=== PATIENT | male | born 1985 | race Caucasian/White ===

== ENCOUNTER → 2020-07-06 15:03 | Outpatient (BNVA) | payer MEDICAID, SELFPAY | PROVIDERS: Family Provider Nurse Practitioner Family; PCP Nurse Practitioner Family; Visit Provider Nurse Practitioner Family | DX: N31.9 Neuromuscular dysfunction of bladder, unspecified (principal); B37.9 Candidiasis, unspecified; N41.9 Inflammatory disease of prostate, unspecified | CPT/HCPCS: 80053; 81001 ==

== ENCOUNTER → 2020-07-27 08:41 | Outpatient (BNVA) | payer MEDICAID, SELFPAY | PROVIDERS: Family Provider Nurse Practitioner Family; PCP Nurse Practitioner Family; Visit Provider Nurse Practitioner Family | DX: N39.0 Urinary tract infection, site not specified (principal); N41.9 Inflammatory disease of prostate, unspecified; N31.9 Neuromuscular dysfunction of bladder, unspecified; B37.9 Candidiasis, unspecified | CPT/HCPCS: 81003 ==

== ENCOUNTER 2020-09-18 07:18 | Outpatient (CLI) | payer MEDICAID, SELFPAY ==
--- NOTE | 2020-09-18 07:15 | XR_ITS ---
WS: [id number] ABDOMEN: SUPINE FILM HISTORY: NEUROGENIC BLADDER COMPARISON: 03/26/2017 Marked diffuse fecal constipation and retention. PATIENT FINANCIAL REP shunt catheter is present with type coiling of th e distal catheter projecting over the L4 vertebral body, similar to the prior study. Right kidney: No renal or ureteral stone identified. Left kidney: No renal or ureteral stone identified. XR/XR KUB [id number] IMPRESSION: No renal, ureteral or pelvic calcifications identified.
[2020-09-18 08:16] LABS: Anion Gap 10.3 (5-19); Blood Urea Nitrogen 14 mg/dL (6-20); Calcium 9.2 mg/dL (8.5-10.5); Carbon Dioxide 29 mmol/L (22-29); Chloride 104 mmol/L (98-107); Glomerular Filtration Rate 68.9 mL/min (90-130); Glucose 99 mg/dL (65-115); Osmolality Calculated 289 mOsm/kg (285-295); Potassium 4.3 mmol/L (3.5-5.1); Sodium 139 mmol/L (136-145)
== END 2020-09-18 07:19 | disposition home or self-care (01) ==
LOC: RAD 07:21
PROVIDERS: PCP Nurse Practitioner Family; Visit Provider Urology
DX: N31.9 Neuromuscular dysfunction of bladder, unspecified (principal)
CPT/HCPCS: 36415; 74018; 80048; 81003

== ENCOUNTER 2020-12-21 15:56 | Outpatient (CLI) | payer MEDICAID, SELFPAY ==
--- NOTE | 2020-12-21 16:20 | CT_ITS ---
WS: [id number] CT CHEST TECHNIQUE: Noncontrast CT of the chest with coronal and sagittal reformatted images. CLINICAL INFORMATION: RIGHT SIDED CHEST WALL PAIN COMPARISON: None. DLP: 637.[address] scans at [facility] use at least one of these dose optimization techniques: automat ed exposure control; mA and/or kV adjustment per patient size (includes targeted exams where dose is matched to clinical indication); or iterative reconstruction. FINDINGS: Both lungs are well aerated. No acute pulmonary infiltrates. No focal pneumonia or pleural fluid. No pneumothorax. No mediastinal or hilar lymphadenopathy. No axillary lymphadenopathy. Adrenal glands are normal. Normal visualized thoracic spine. Shunt catheter visualized in the right c hest wall appears unremarkable. CT/CT chest wo con [id number] IMPRESSION: 1. Normal chest CT. 2. No acute pulmonary infiltrates. No focal pneumonia or pleural fluid. 3. No pneumothorax. 4. Partially visualized shunt tubing in the right chest wall appears unremarka ble
== END 2020-12-21 15:57 | disposition home or self-care (01) ==
LOC: RADWPI 16:00
PROVIDERS: PCP Nurse Practitioner Family; Visit Provider Nurse Practitioner Family
DX: R07.89 Other chest pain (principal)
CPT/HCPCS: 71250

== ENCOUNTER → 2020-12-27 15:12 | Outpatient (BNVA) | payer MEDICAID, SELFPAY | PROVIDERS: PCP Nurse Practitioner Family; Visit Provider Nurse Practitioner Family | DX: N31.9 Neuromuscular dysfunction of bladder, unspecified (principal); N41.9 Inflammatory disease of prostate, unspecified; N35.913 Unspecified membranous urethral stricture, male | CPT/HCPCS: 81003 ==

== ENCOUNTER 2021-04-07 09:46 | Emergency (ER) | payer MEDICAID, SELFPAY ==
[2021-04-07 09:51] VITALS: BP 116/77; PULSE 80; RESP 15; TEMP 36.6; O2SAT 98; BMI 23.3
--- NOTE | 2021-04-07 10:03 | ED_ITS ---
HPI - Male Genitourinary General: Chief complaint: Urogenital-Male Stated complaint: POSS UTI Time Seen by Provider: 04/07/21 09:47 History of Present Illness: HPI Narrative: 35-year-old male with a history of spina bifida previous surgery for spina bifida left him with a neurogenic bladder and he has to self cath on a regular basis. Comes in today complaining of symptoms of UTI has had multiple in the past. He is not on any chronic suppressive therapy although on his medicine list he has Cipro 500 twice daily with a course of 60 tablets on there he states he has not been taking them. He denies any fever he is at flank pain bilaterally as well. No hematuria. All of his symptoms began yesterday. MD Complaint: dysuria Onset (ago): hour(s) Duration: constant and progressively worsening Location: right flank and left flank Severity: moderate Quality: aching Relieving factors: none Associated symptoms: Reports dysuria and urinary retention; Deny discharge, fevers/chills, hematuria, nausea, rash, swelling, urinary incontinence, mass or vomiting Review of Systems Const: Denies: fever(s), chills, body aches, change in appetite, fatigue or malaise ENMT: Denies: throat pain, ear or mastoid pain, nasal discharge or nasal congestion Card: Denies: chest pain, edema, dyspnea on exertion or orthopnea Resp: Denies: dyspnea, productive cough or non-productive cough GI: Denies: nausea or vomiting : Reports: dysuria; Denies: urinary incontinence or hematuria Skin/Breast: Denies: rash or pruritus PFSH ED PFSH: Medical History History of right foot drop CORRECTIVE SURGERY Hx of spina bifida SURGERY Membranous urethral stricture Neurogenic bladder Prostatitis Surgical History History of brain shunt History of pituitary surgery Hx of circumcision Family History Father Diabetes Mother Diabetes Social History Smoking and tobacco status: former smoker Alcohol intake: never Caregiver/support person: No Lives independently: Yes Marital status: Current occupational status: disabled Physical Exam Const: COMMON NORMALS: no acute distress GENERAL APPEARANCE: cooperative and comfortable ORIENTATION/CONSCIOUSNESS: Yes awake, Yes oriented to person, Yes oriented to place and Yes oriented to time HENMT: COMMON NORMALS: normocephalic, atraumatic, hearing grossly normal bilaterally and external ears normal HEAD & SCALP: normocephalic and atraumatic EXTERNAL EAR: Yes external ears normal Neck/C-Spine: COMMON NORMALS: no JVD Resp: COMMON NORMALS: normal respiratory effort, No retractions, No use of accessory muscles and clear to auscultation bilaterally AUSCULTATION: clear to auscultation bilaterally Cardio: COMMON NORMALS: no JVD, regular rate, regular rhythm and No murmurs present (Cardio) RATE: regular rate RHYTHM: regular rhythm GI: COMMON NORMALS: Soft to palpation and No hepatosplenomegaly present AUSCULTATION: Yes normoactive bowel sounds PALPATION: Yes Soft to palpation, No Tenderness to palpation present (GI), No Guarding due to palpation present (GI) and Yes No hepatosplenomegaly present Extremity: COMMON NORMALS: normal to inspection, capillary refill normal, no clubbing, cyanosis or edema, no calf tenderness and no pedal edema Neuro: SENSORIUM/ORIENTATION: Yes oriented to person, Yes oriented to place and Yes oriented to time Skin: COMMON NORMALS: no rashes or lesions noted GENERAL SKIN EXAM: no rashes or lesions noted Course Vital Signs: Vital signs: Vital Signs Temperature 97.9 F 04/07/21 09:51 Pulse Rate 93 04/07/21 11:04 Respiratory Rate 15 04/07/21 11:04 Blood Pressure 116/77 04/07/21 09:51 Pulse Oximetry 98 04/07/21 11:04 MDM - Male MDM Narrative: Medical decision making narrative: Cystitis. White count is normal. We will start him on Rocephin single dose here and will start on oral antibiotics. Lab Data: Labs: Lab Results 04/07/21 04/07/21 04/07/21 Range/Units 10:15 10:15 10:15 WBC 7.9 (4.0-10.0) 10^3/ uL RBC 5.18 (4.1-5.3) 10^6/u L Hgb 15.2 (11.7-16.6) g/dL Hct 46.1 (42.0-52.0) % MCV 89.0 (80-94) fL MCH 29.3 (28.0-34.0) pg MCHC 33.0 (30.0-36.0) g/dL RDW 12.1 (12.1-15.1) % Plt Count 247 (130-400) 10^3/c mm MPV 10.0 (7.4-10.4) fL Neut % (Auto) 74.1 % Lymph % (Auto) 17.8 % [place] % (Auto) 5.9 % Eos % (Auto) 1.3 % Baso % (Auto) 0.6 % Neut # (Auto) 5.85 (1.8-7.7) 10^3/u L Lymph # (Auto) 1.4 (0.8-4.8) 10^3/u L [place] # (Auto) 0.5 (0.2-0.9) 10^3/u L Eos # (Auto) 0.1 (0.0-0.8) 10^3/u L Baso # (Auto) 0.1 (0.0-0.1) 10^3/u L Nucleated RBC % (a uto) 0 % Nucleated RBCs # 0.0 /100WBC Sodium 138 (136-145) mmol/L Potassium 4.9 (3.5-5.1) mmol/L Chloride 101 (98-107) mmol/L Carbon Dioxide 28 (22-29) mmol/L Anion Gap 13.9 (5-19) BUN 9 (6-20) mg/dL Creatinine 0.9 (0.7-1.2) mg/dL GFR Calculation 96.0 (90-130) mL/min Glucose 141 H (65-115) mg/dL Calculated Osmolal ity 287 (285-295) mOsm/k g Calcium 9.1 (8.5-10.5) mg/dL Urine Color Yellow (Yellow) Urine Appearance Cloudy (CLEAR) Urine pH 7 (5-7) Ur Specific Gravit y 1.015 (1.005-1.030) Urine Protein Neg (Negative) Urine Glucose (UA) Norm (Normal) Urine Ketones Negative (Negative) Urine Blood Neg (Negative) Urine Nitrate Positive H (Negative) Urine Bilirubin Neg (Negative) Urine Urobilinogen Norm (Negative) mg/dL Ur Leukocyte Tamika ase Trace H (Negative) Urine RBC None (0-2) /hpf Urine WBC 15-25 H (0-5) /hpf Ur Squamous Epith Cells 0-4 H (0-5) /hpf Amorphous Sediment Not Reportable Urine Bacteria 3+ H (NONE) /hpf Discharge Plan Discharge Patient Disposition: Home Clinical Impression: Urinary tract infection, Neurogenic bladder Condition: Stable Prescriptions: New ciprofloxacin HCl 500 mg tablet 500 mg PO BID Qty: 20 RF: 0 No Action desmopressin 10 mcg/spray (0.1 mL) spray with pump See Rx Instructions .ROUTE .COMPLEX RF: 0 atorvastatin 40 mg tablet 40 mg PO BEDTIME RF: 0 naproxen sodium 220 mg Tablet 220 mg PO BID RF: 0 lamotrigine 50 mg tablet extended release 24hr 50 mg PO BEDTIME RF: 0 Discharge Orders: Discharge ED (Routine); Ordered 04/07/21 Ordered By: Adan Sandhu Referrals: Sisi Russo NP [Primary Care Provider] - Discharge Diet: Usual diet Patient Instructions: Opioid Safety Coding Level of Care Code ED Shop Worker for Chg Fwd Exam Comprehensive
[2021-04-07 10:25] LABS: Basophils # 0.1 10^3/uL (0.0-0.1); Basophils % 0.6 %; Eosinophils # 0.1 10^3/uL (0.0-0.8); Eosinophils % 1.3 %; Hematocrit 46.1 % (42.0-52.0); Hemoglobin 15.2 g/dL (11.7-16.6); Lymphocytes # 1.4 10^3/uL (0.8-4.8); Lymphocytes % 17.8 %; Mean Corpuscular Hemoglobin 29.3 pg (28.0-34.0); Monocytes # 0.5 10^3/uL (0.2-0.9); Monocytes % 5.9 %; Neutrophils # 5.85 10^3/uL (1.8-7.7); Neutrophils % 74.1 %; Nucleated Red Blood Cells % 0 %; Platelet Count 247 10^3/cmm (130-400); Red Blood Count 5.18 10^6/uL (4.1-5.3); Red Cell Distribution Width 12.1 % (12.1-15.1); White Blood Count 7.9 10^3/uL (4.0-10.0)
--- NOTE | 2021-04-07 10:45 | PC.PHAR ---
pt states he takes care of his own medications-pt brought in med bottle from 09/18/2020 for cipro 500mg bid and bactrim ds 1 tab bid dated 12/14/2019 pt states he hasnt taken for a long time but wanted the dr to know thats the medications he usually gets when he gets the infections
[2021-04-07 10:46] LABS: Add Urine Culture? Yes; Add Urine Microscopic? YES; Bacteria Urine 3+ /hpf; Bilirubin Urine Neg (Negative); Blood Urine Neg (Negative); Glucose Urine UA Norm (Normal); Ketones Urine Negative (Negative); Leukocyte Esterase Urine Trace (Negative); Nitrate Urine Positive (Negative); Protein Urine Neg (Negative); Specific Gravity, Urine 1.015 (1.005-1.030); Squamous Epithelial Cell Urine 0-4 /hpf (0-5); Urine Appearance Cloudy (CLEAR); Urine Color Yellow (Yellow); Urobilinogen Urine Norm (Negative); WBC Urine 15-25 /hpf (0-5); pH Urine 7 (5-7)
[2021-04-07 10:49] LABS: Blood Urea Nitrogen 9 mg/dL (6-20); Calcium 9.1 mg/dL (8.5-10.5); Carbon Dioxide 28 mmol/L (22-29); Chloride 101 mmol/L (98-107); Glucose 141 mg/dL (65-115); Osmolality Calculated 287 mOsm/kg (285-295); Sodium 138 mmol/L (136-145)
[2021-04-07 10:50] LABS: Anion Gap 13.9 (5-19); Potassium 4.9 mmol/L (3.5-5.1)
[2021-04-07] MEDS: cefTRIAXone 1,000 MG in lidocaine 1% 2.1 ML 2.1 MG IM (11:01)
[2021-04-07 11:04] VITALS: PULSE 93; RESP 15; O2SAT 98
== END 2021-04-07 11:08 | disposition home or self-care (01) ==
PROVIDERS: Physician Assistant; Emergency Provider Family Medicine; PCP Nurse Practitioner Family
DX: N39.0 Urinary tract infection, site not specified (principal); N31.9 Neuromuscular dysfunction of bladder, unspecified; Z87.891 Personal history of nicotine dependence
CPT/HCPCS: 36415; 80048; 81001; 85025; 87040; 87077; 87086; 87186; 96372; 99283; J0696

== ENCOUNTER 2021-09-23 10:42 | Emergency (ER) | payer MEDICAID, SELFPAY ==
[2021-09-23 11:21] VITALS: BP 122/76; PULSE 82; RESP 12; TEMP 36.9; O2SAT 100; BMI 24.0
--- NOTE | 2021-09-23 11:27 | ED_ITS ---
HPI - Male Genitourinary General: Chief complaint: Urogenital-Male Stated complaint: possible kidney infection Time Seen by Provider: 09/23/21 11:27 History of Present Illness: HPI Narrative: prostate pain/odor with urine output/chronic cath Onset (ago): day(s) (2-3 days increasing) Review of Systems General: Reports: 10 or more systems reviewed and unremarkable except in HPI and below : Reports: other (purulence, fullness, and odor with self caths) PFSH ED PFSH: Medical History History of right foot drop CORRECTIVE SURGERY Hx of spina bifida SURGERY Membranous urethral stricture Neurogenic bladder Prostatitis Surgical History History of brain shunt History of pituitary surgery Hx of circumcision Family History Father Diabetes Mother Diabetes Social History Smoking and tobacco status: former smoker Alcohol intake: never Caregiver/support person: No Lives independently: Yes Marital status: Current occupational status: disabled Physical Exam Const: COMMON NORMALS: no acute distress, patient oriented x3, no limitations and alert GENERAL APPEARANCE: cooperative and comfortable ORIENTATION/CONSCIOUSNESS: Yes awake, Yes oriented to person, Yes oriented to place and Yes oriented to time HENMT: COMMON NORMALS: normocephalic, atraumatic, external ears normal, EAC's normal, TM's normal bilaterally and Normal external nose present HEAD & SCALP: normal to inspection, normocephalic and atraumatic FACE & SINUS: normal facial exam, sinuses nontender and face symmetric NOSE: Normal external nose present, Normal nares present and No nasal discharge present EXTERNAL EAR: Yes external ears normal EXTERNAL AUDITORY CANAL: EAC's normal TYMPANIC MEMBRANE: TM's normal bilaterally MOUTH: Normal oral and palatal mucosa present, lip normal and tongue normal THROAT: posterior oropharynx normal, tonsils normal and uvula midline Eye: COMMON NORMALS: Equal, round and reactive pupils present, EOMs intact bilaterally and conjunctivae normal GENERAL EYE: appearance normal, both eyes and all related structures and normal light reflex EYELID: eyelids normal CONJUNCTIVA: Yes conjunctivae normal PUPIL: Yes Equal, round and reactive pupils present EOM: Yes EOM abnormal DIRECT OPHTHALMOSCOPY: Yes normal light reflex Neck/C-Spine: COMMON NORMALS: full ROM, no lymphadenopathy, supple, no meningeal signs, no JVD and Thyroid normal GENERAL: Yes normal visual inspection THYROID: Thyroid normal CERVICAL SPINE: Yes cervical ROM normal and Yes normal cervical lordosis Lymph: LYMPHATIC: no lymphadenopathy noted Chest: COMMONS NORMALS: normal inspection of the chest and normal palpation of entire chest wall Resp: COMMON NORMALS: normal respiratory effort, No retractions and clear to auscultation bilaterally AUSCULTATION: clear to auscultation bilaterally Cardio: COMMON NORMALS: no JVD, regular rate, regular rhythm, S1 normal heart sound present, S2 normal heart sound present, No gallops present (Cardio), No clicks present (Cardio), No murmurs present (Cardio), No rub (Cardio) and Peripheral pulses 2+ throughout RATE: regular rate RHYTHM: regular rhythm HEART SOUNDS: S1 normal heart sound present and S2 normal heart sound present PERIPHERAL PULSES: Peripheral pulses 2+ throughout GI: COMMON NORMALS: Normal to inspection, nondistended, normoactive bowel sounds present, Soft to palpation, non-tender and no masses PALPATION: Yes Soft to palpation : COMMON NORMALS: Yes no CVA tenderness BLADDER/KIDNEY EXAM: Yes no CVA tenderness Back/Pelvis: COMMON NORMALS: no CVA tenderness, thoracic and lumbar spine normal to inspection, no thoracic nor lumbar tenderness and thoraco-lumbar ROM normal Extremity: COMMON NORMALS: normal to inspection, full ROM, capillary refill normal, no joint enlargement, no clubbing, cyanosis or edema, no calf tenderness and no pedal edema GENERAL: Yes normal exam except as noted Neuro: COMMON NORMALS: patient oriented x3, moves all extremities, no focal motor deficits, no sensory deficits noted and gait normal SENSORIUM/ORIENTATION: Yes alert, Yes oriented to person, Yes oriented to place and Yes oriented to time MENINGEAL SIGNS: Yes no meningeal signs Psych: COMMON NORMALS: mental status grossly normal, Normal thought process present, cooperative, normal affect, speech normal and activity/motor behavior normal SPEECH: Yes normal speech THOUGHT PROCESS: Normal thought process present Skin: COMMON NORMALS: no rashes or lesions noted, no wounds and turgor normal GENERAL SKIN EXAM: no rashes or lesions noted and turgor normal Course ED course: Pt presents with complaints of flare up of similar prostatitis flare ups. He has been on oral cipro for 6 weeks and monitored per urology clinic. This feels similar to him and he notes odor, purulence, and discomfort when passing prostate during his self caths. We will do a UA but tx will be cipro orally and pt to follow up with urology this week as soon as possible. Reevaluation(s): Reevaluation #1: Pt UA appears to have too many WBCs to count but is negative for nitrates. Further increasing the chances of prostatitis for his primary dx. WBC is wnl so no acute infection of his systemic response to infection being triggered. We will proceed with DC for tx of prostatitis and FOLLOW UP with Urology Time: 12:37 Vital Signs: Vital signs: Vital Signs Temperature 98.5 F 09/23/21 11:21 Pulse Rate 84 09/23/21 11:47 Respiratory Rate 16 09/23/21 11:47 Blood Pressure 131/81 09/23/21 11:47 Pulse Oximetry 100 09/23/21 11:47 MDM - Male Lab Data: Labs: Lab Results 09/23/21 09/23/21 11:45 12:12 WBC 7.6 10^3/uL 10^3/ uL (4.0-10.0) RBC 5.13 10^6/uL 10^6 /uL (4.1-5.3) Hgb 15.2 g/dL g/dL (11.7-16.6) Hct 45.6 % % (42.0-52.0) MCV 88.9 fl fl (80-94) MCH 29.6 pg pg (28.0-34.0) MCHC 33.3 g/dL g/dL (30.0-36.0) RDW 12.6 % % (12.1-15.1) Plt Count 258 10^3/cmm 10^3 /cmm (130-400) MPV 9.7 fL fL (7.4-10.4) Neut % (Auto) 74.2 % % Lymph % (Auto) 16.7 % % [place] % (Auto) 6.8 % % Eos % (Auto) 1.4 % % Baso % (Auto) 0.5 % % Neut # (Auto) 5.64 10^3/uL 10^3 /uL (1.8-7.7) Lymph # (Auto) 1.3 10^3/uL 10^3/ uL (0.8-4.8) [place] # (Auto) 0.5 10^3/uL 10^3/ uL (0.2-0.9) Eos # (Auto) 0.1 10^3/uL 10^3/ uL (0.0-0.8) Baso # (Auto) 0.0 10^3/uL 10^3/ uL (0.0-0.1) Nucleated RBC % (a uto) 0 % % Nucleated RBCs # 0.0 /100WBC /100W BC Urine Color Yellow (Yellow) Urine Appearance Hazy A (CLEAR) Urine pH 5 (5-7) Ur Specific Gravit y 1.020 (1.005-1.030) Urine Protein Neg (Negative) Urine Glucose (UA) Norm (Normal) Urine Ketones Negative (Negative) Urine Blood 2+ H (Negative) Urine Nitrate Negative (Negative) Urine Bilirubin Neg (Negative) Urine Urobilinogen Norm mg/dL mg/dL (Negative) Ur Leukocyte Tamika ase 2+ H (Negative) Urine RBC 10-15 /hpf H /hpf (0-2) Urine WBC Too numerous to c nt /hpf H /hpf (0-5) Ur Squamous Epith Cells None /hpf /hpf (0-5) Amorphous Sediment Not Reportable Urine Bacteria 3+ /hpf H /hpf (NONE) Discharge Plan Discharge Condition: Stable Prescriptions: New Cipro 500 mg tablet 500 mg PO BID Qty: 20 RF: 0 No Action desmopressin 10 mcg/spray (0.1 mL) spray with pump See Rx Instructions .ROUTE .COMPLEX RF: 0 atorvastatin 40 mg tablet 40 mg PO BEDTIME RF: 0 naproxen sodium 220 mg Tablet 220 mg PO BID RF: 0 Coding Level of Care Code ED [employer] Plant Operator for Chg Fwd Exam Comprehensive
[2021-09-23 11:47] VITALS: BP 131/81; PULSE 84; RESP 16; O2SAT 100
[2021-09-23] MEDS: ciprofloxacin 500 mg Tablet PO (12:05)
[2021-09-23] MEDS: phenazopyridine 100 mg Tablet 200 MG PO (12:05)
[2021-09-23 12:22] LABS: Basophils % 0.5 %; Eosinophils # 0.1 10^3/uL (0.0-0.8); Eosinophils % 1.4 %; Hematocrit 45.6 % (42.0-52.0); Hemoglobin 15.2 g/dL (11.7-16.6); Lymphocytes # 1.3 10^3/uL (0.8-4.8); Lymphocytes % 16.7 %; Mean Corpuscular HGB Conc 33.3 g/dL (30.0-36.0); Mean Corpuscular Hemoglobin 29.6 pg (28.0-34.0); Mean Corpuscular Volume 88.9 fl (80-94); Mean Platelet Volume 9.7 fL (7.4-10.4); Monocytes # 0.5 10^3/uL (0.2-0.9); Monocytes % 6.8 %; Neutrophils # 5.64 10^3/uL (1.8-7.7); Neutrophils % 74.2 %; Nucleated Red Blood Cells % 0 %; Platelet Count 258 10^3/cmm (130-400); Red Blood Count 5.13 10^6/uL (4.1-5.3); Red Cell Distribution Width 12.6 % (12.1-15.1); White Blood Count 7.6 10^3/uL (4.0-10.0)
[2021-09-23 12:25] LABS: Urine Appearance Hazy (CLEAR); Urine Color Yellow (Yellow); pH Urine 5 (5-7)
[2021-09-23 12:26] LABS: Add Urine Culture? Yes; Add Urine Microscopic? YES; Bacteria Urine 3+ /hpf; Bilirubin Urine Neg (Negative); Blood Urine 2+ (Negative); Glucose Urine UA Norm (Normal); Ketones Urine Negative (Negative); Leukocyte Esterase Urine 2+ (Negative); Nitrate Urine Negative (Negative); Protein Urine Neg (Negative); Urobilinogen Urine Norm (Negative); WBC Urine TOO NUMEROUS TO CNT /hpf (0-5)
[2021-09-23 12:41] LABS: Alanine Aminotransferase 20 U/L (0-41); Albumin Level 4.1 g/dL (3.5-5.2); Alkaline Phosphatase 93 IU/L (40-130); Anion Gap 13.4 (5-19); Aspartate Amino Transferase 15 U/L (0-40); Blood Urea Nitrogen 7 mg/dL (6-20); Calcium 8.9 mg/dL (8.5-10.5); Carbon Dioxide 26 mmol/L (22-29); Chloride 105 mmol/L (98-107); Globulin 2.7 g/dL (1.3-4.6); Glomerular Filtration Rate 109.4 mL/min (90-130); Glucose 83 mg/dL (65-115); Lipase 34 U/L (13-60); Osmolality Calculated 287 mOsm/kg (285-295); Potassium 4.4 mmol/L (3.5-5.1); Sodium 140 mmol/L (136-145); Total Bilirubin 0.4 mg/dL (0.15-1.2); Total Protein 6.8 g/dL (6.6-8.7)
--- NOTE | 2021-09-24 15:44 | DCPLANNER ---
channel marketing program manager had message to schedule a follow up appointment for patient with urology. Patient is established with Raine Mcwilliams. channel marketing program manager sent patients information to Henry Moser and Julie thru task marketing automation manager. Patients information will be printed and reviewed. Clinic will call patient with appointment information.
--- NOTE | 2021-09-25 07:31 | DCPLANNER ---
Patient has a follow up appointment scheduled for Friday, October 05, 2021 at 9:[address]. Clinic will call patient with appointment information.
--- NOTE | 2021-10-16 07:54 | DCPLANNER ---
Patient had a follow up appointment scheduled with Dr. Street - patient did not attend appointment.
== END 2021-09-23 12:47 | disposition home or self-care (01) ==
PROVIDERS: Emergency Medicine; Emergency Provider Nurse Practitioner Family
DX: R39.198 Other difficulties with micturition (principal); Q05.9 Spina bifida, unspecified; Z87.891 Personal history of nicotine dependence
CPT/HCPCS: 36415; 80053; 81001; 83690; 85025; 87077; 87086; 87186; 99283

== ENCOUNTER 2021-10-19 15:14 | Emergency (ER) | payer MEDICAID, SELFPAY ==
[2021-10-19 15:53] VITALS: BP 130/66; PULSE 87; RESP 14; TEMP 36.9; O2SAT 99; BMI 23.6
[2021-10-19 19:22] LABS: Basophils # 0.1 10^3/uL (0.0-0.1); Basophils % 0.9 %; Eosinophils # 0.2 10^3/uL (0.0-0.8); Eosinophils % 2.3 %; Hematocrit 46.9 % (42.0-52.0); Hemoglobin 15.5 g/dL (11.7-16.6); Lymphocytes # 1.8 10^3/uL (0.8-4.8); Lymphocytes % 25.8 %; Mean Corpuscular Hemoglobin 29.4 pg (28.0-34.0); Mean Corpuscular Volume 88.8 fl (80-94); Mean Platelet Volume 10.2 fL (7.4-10.4); Monocytes # 0.6 10^3/uL (0.2-0.9); Monocytes % 8.8 %; Neutrophils # 4.27 10^3/uL (1.8-7.7); Neutrophils % 61.9 %; Nucleated Red Blood Cells % 0 %; Platelet Count 275 10^3/cmm (130-400); Red Blood Count 5.28 10^6/uL (4.1-5.3); Red Cell Distribution Width 12.7 % (12.1-15.1); White Blood Count 6.9 10^3/uL (4.0-10.0)
[2021-10-19 19:49] LABS: Lactic Sepsis W/Reflex 0.7 mmol/L (0.5-2.2)
[2021-10-19 19:51] LABS: Alanine Aminotransferase 17 U/L (0-41); Albumin Level 4.3 g/dL (3.5-5.2); Alkaline Phosphatase 97 IU/L (40-130); Anion Gap 15.1 (5-19); Aspartate Amino Transferase 17 U/L (0-40); Blood Urea Nitrogen 13 mg/dL (6-20); Calcium 8.9 mg/dL (8.5-10.5); Carbon Dioxide 26 mmol/L (22-29); Chloride 103 mmol/L (98-107); Globulin 2.4 g/dL (1.3-4.6); Glomerular Filtration Rate 95.5 mL/min (90-130); Glucose 76 mg/dL (65-115); Osmolality Calculated 289 mOsm/kg (285-295); Potassium 4.1 mmol/L (3.5-5.1); Sodium 140 mmol/L (136-145); Total Bilirubin 0.4 mg/dL (0.15-1.2); Total Protein 6.7 g/dL (6.6-8.7)
--- NOTE | 2021-10-19 20:39 | W.ED.ABDPA2 ---
Documented by User: ANGEL Walker 10/19/21 20:50 HPI - Abdominal Pain General: Chief Complaint: Abdominal Pain Stated Complaint: surgery a week ago incision leaking Time Seen by Provider: 10/19/21 20:24 History of Present Illness: HPI narrative: 36-year-old male patient comes in today for complaints of drainage coming from his abdominal surgical wound site. Patient denies any fever. Patient has some drainage noted to a wound to his right upper quadrant abdomen that has some serosanguineous drainage. Patient has a history of spina bifida and shunt placement. Review of Systems Skin/Breast: Reports: changing lesions [facility] PFSH: Medical History (Updated 10/19/21 @ 20:39 by ANGEL Walker) History of right foot drop CORRECTIVE SURGERY Hx of spina bifida SURGERY Membranous urethral stricture Neurogenic bladder Prostatitis Surgical History History of brain shunt History of pituitary surgery Hx of circumcision Family History Father Diabetes Mother Diabetes Social History Smoking and tobacco status: former smoker Alcohol intake: never Caregiver/support person: No Lives independently: Yes Marital status: Current occupational status: disabled Physical Exam Const: COMMON NORMALS: alert GENERAL APPEARANCE: cooperative HENMT: COMMON NORMALS: normocephalic and Normal nasal mucous membranes and turbinates present HEAD & SCALP: normocephalic NOSE: Normal nasal mucous membranes and turbinates present MOUTH: Normal oral and palatal mucosa present Eye: COMMON NORMALS: EOMs intact bilaterally Neck/C-Spine: COMMON NORMALS: full ROM Resp: COMMON NORMALS: normal respiratory effort and clear to auscultation bilaterally AUSCULTATION: clear to auscultation bilaterally Cardio: COMMON NORMALS: regular rate and regular rhythm RATE: regular rate RHYTHM: regular rhythm GI: INSPECTION: Yes incision (Right upper quadrant) Inspection of incision: drainage AUSCULTATION: Yes normoactive bowel sounds Extremity: COMMON NORMALS: full ROM Neuro: SENSORIUM/ORIENTATION: Yes alert Psych: COMMON NORMALS: mental status grossly normal Course Vital Signs: Vital signs: Vital Signs Temperature 98.4 F 10/19/21 15:53 Pulse Rate 88 10/19/21 20:53 Respiratory Rate 18 10/19/21 20:53 Blood Pressure 130/66 10/19/21 15:53 Pulse Oximetry 98 10/19/21 20:53 MDM - Abdominal Pain MDM Narrative: Medical decision making narrative: Patient came in for concerns of drainage from his right upper quadrant surgical wound. Patient noticed the drainage this morning. On exam patient has a mild to centimeter area of redness to his surgical wound that is approximately 2 cm and closed with 2 zaheer. Palpation of the wound expresses some serosanguineous fluid, culture was collected. Patient's vital signs are normal without any signs of fever. Patient just reports tenderness at the surgical site. Differential diagnosis includes infection of surgical wound, history of MRSA, seroma. Laboratory values were normal. Wound culture was collected and will be outstanding. Blood cultures were collected and outstanding. Patient has a history of MRSA so concern for staph infection is there, so we will put him on Bactrim 1 tablet twice a day for next 7 days. Patient was agreeable to the plan and will monitor his temperature daily. Patient has an appointment to see his surgeon next Friday. Lab Data: Labs: Lab Results 10/19/21 10/19/21 10/19/21 18:35 18:35 18:35 WBC 6.9 10^3/uL 10^3/ uL (4.0-10.0) RBC 5.28 10^6/uL 10^6 /uL (4.1-5.3) Hgb 15.5 g/dL g/dL (11.7-16.6) Hct 46.9 % % (42.0-52.0) MCV 88.8 fl fl (80-94) MCH 29.4 pg pg (28.0-34.0) MCHC 33.0 g/dL g/dL (30.0-36.0) RDW 12.7 % % (12.1-15.1) Plt Count 275 10^3/cmm 10^3 /cmm (130-400) MPV 10.2 fL fL (7.4-10.4) Neut % (Auto) 61.9 % % Lymph % (Auto) 25.8 % % [place] % (Auto) 8.8 % % Eos % (Auto) 2.3 % % Baso % (Auto) 0.9 % % Neut # (Auto) 4.27 10^3/uL 10^3 /uL (1.8-7.7) Lymph # (Auto) 1.8 10^3/uL 10^3/ uL (0.8-4.8) [place] # (Auto) 0.6 10^3/uL 10^3/ uL (0.2-0.9) Eos # (Auto) 0.2 10^3/uL 10^3/ uL (0.0-0.8) Baso # (Auto) 0.1 10^3/uL 10^3/ uL (0.0-0.1) Nucleated RBC % (a uto) 0 % % Nucleated RBCs # 0.0 /100WBC /100W BC Sodium 140 mmol/L mmol/L (136-145) Potassium 4.1 mmol/L mmol/L (3.5-5.1) Chloride 103 mmol/L mmol/L (98-107) Carbon Dioxide 26 mmol/L mmol/L (22-29) Anion Gap 15.1 (5-19) BUN 13 mg/dL mg/dL (6-20) Creatinine 0.9 mg/dL mg/dL (0.7-1.2) GFR Calculation 95.5 mL/min mL/mi n (90-130) Glucose 76 mg/dL mg/dL (65-115) Calculated Osmolal ity 289 mOsm/kg mOsm/ kg (285-295) Lactic Acid 0.7 mmol/L mmol/L (0.5-2.2) Calcium 8.9 mg/dL mg/dL (8.5-10.5) Total Bilirubin 0.4 mg/dL mg/dL (0.15-1.2) AST 17 U/L U/L (0-40) ALT 17 U/L U/L (0-41) Alkaline Phosphata se 97 IU/L IU/L (40-130) Total Protein 6.7 g/dL g/dL (6.6-8.7) Albumin 4.3 g/dL g/dL (3.5-5.2) Globulin 2.4 g/dL g/dL (1.3-4.6) Discharge Plan Discharge Patient Disposition: Home Clinical Impression: Surgical wound infection Condition: Stable Prescriptions: New Bactrim DS 800-160 mg tablet 1 tab PO BID 7 Days Qty: 14 RF: 0 Discontinued ciprofloxacin HCl [Cipro] 500 mg tablet 500 mg PO BID Qty: 20 RF: 0 No Action desmopressin 10 mcg/spray (0.1 mL) spray with pump See Rx Instructions .ROUTE .COMPLEX RF: 0 atorvastatin 40 mg tablet 40 mg PO BEDTIME RF: 0 naproxen sodium 220 mg Tablet 220 mg PO BID RF: 0 Discharge Orders: Discharge ED (Routine); Ordered 10/19/21 Ordered By: Rishabh Garcia Referrals: Sam Street MD [Primary Care Provider] - Discharge Diet: Usual diet Discharge Activity: Increase activity as tolerated Patient Instructions: Wound Infection (ED) Activity Restrictions/Additional Instructions: Continue cefdinir as directed, start Bactrim 1 tablet twice a day for the next 7 days. Drink plenty of water. Monitor for fever greater than 100.4. Follow-up with primary care or surgeon for further treatment. Return to the ER for high fever or new concerns. Coding Level of Care Code ED Trimming Machine Set Up Operator for Chg Fwd Exam Comprehensive Documented by User: David Belcher, 10/19/21 23:35 HPI - Abdominal Pain General: Chief Complaint: Abdominal Pain Stated Complaint: surgery a week ago incision leaking Time Seen by Provider: 10/19/21 20:24 [facility] PFS: Medical History (Updated 10/19/21 @ 20:39 by ANGEL Walker) History of right foot drop CORRECTIVE SURGERY Hx of spina bifida SURGERY Membranous urethral stricture Neurogenic bladder Prostatitis Surgical History History of brain shunt History of pituitary surgery Hx of circumcision Family History Father Diabetes Mother Diabetes Social History Smoking and tobacco status: former smoker Alcohol intake: never Caregiver/support person: No Lives independently: Yes Marital status: Current occupational status: disabled Course Vital Signs: Vital signs: Vital Signs Temperature 98.4 F 10/19/21 15:53 Pulse Rate 88 10/19/21 20:53 Respiratory Rate 18 10/19/21 20:53 Blood Pressure 130/66 10/19/21 15:53 Pulse Oximetry 98 10/19/21 20:53 MDM - Abdominal Pain MDM Narrative: Medical decision making narrative: This patient was originally seen by ANGEL Segura. I agree with his history, evaluation, and treatment. Lab Data: Labs: Lab Results 10/19/21 10/19/21 10/19/21 18:35 18:35 18:35 WBC 6.9 10^3/uL 10^3/ uL (4.0-10.0) RBC 5.28 10^6/uL 10^6 /uL (4.1-5.3) Hgb 15.5 g/dL g/dL (11.7-16.6) Hct 46.9 % % (42.0-52.0) MCV 88.8 fl fl (80-94) MCH 29.4 pg pg (28.0-34.0) MCHC 33.0 g/dL g/dL (30.0-36.0) RDW 12.7 % % (12.1-15.1) Plt Count 275 10^3/cmm 10^3 /cmm (130-400) MPV 10.2 fL fL (7.4-10.4) Neut % (Auto) 61.9 % % Lymph % (Auto) 25.8 % % [place] % (Auto) 8.8 % % Eos % (Auto) 2.3 % % Baso % (Auto) 0.9 % % Neut # (Auto) 4.27 10^3/uL 10^3 /uL (1.8-7.7) Lymph # (Auto) 1.8 10^3/uL 10^3/ uL (0.8-4.8) [place] # (Auto) 0.6 10^3/uL 10^3/ uL (0.2-0.9) Eos # (Auto) 0.2 10^3/uL 10^3/ uL (0.0-0.8) Baso # (Auto) 0.1 10^3/uL 10^3/ uL (0.0-0.1) Nucleated RBC % (a uto) 0 % % Nucleated RBCs # 0.0 /100WBC /100W BC Sodium 140 mmol/L mmol/L (136-145) Potassium 4.1 mmol/L mmol/L (3.5-5.1) Chloride 103 mmol/L mmol/L (98-107) Carbon Dioxide 26 mmol/L mmol/L (22-29) Anion Gap 15.1 (5-19) BUN 13 mg/dL mg/dL (6-20) Creatinine 0.9 mg/dL mg/dL (0.7-1.2) GFR Calculation 95.5 mL/min mL/mi n (90-130) Glucose 76 mg/dL mg/dL (65-115) Calculated Osmolal ity 289 mOsm/kg mOsm/ kg (285-295) Lactic Acid 0.7 mmol/L mmol/L (0.5-2.2) Calcium 8.9 mg/dL mg/dL (8.5-10.5) Total Bilirubin 0.4 mg/dL mg/dL (0.15-1.2) AST 17 U/L U/L (0-40) ALT 17 U/L U/L (0-41) Alkaline Phosphata se 97 IU/L IU/L (40-130) Total Protein 6.7 g/dL g/dL (6.6-8.7) Albumin 4.3 g/dL g/dL (3.5-5.2) Globulin 2.4 g/dL g/dL (1.3-4.6) Discharge Plan Discharge Patient Disposition: Home Clinical Impression: Surgical wound infection Condition: Stable Prescriptions: New Bactrim DS 800-160 mg tablet 1 tab PO BID 7 Days Qty: 14 RF: 0 Discontinued ciprofloxacin HCl [Cipro] 500 mg tablet 500 mg PO BID Qty: 20 RF: 0 No Action desmopressin 10 mcg/spray (0.1 mL) spray with pump See Rx Instructions .ROUTE .COMPLEX RF: 0 atorvastatin 40 mg tablet 40 mg PO BEDTIME RF: 0 naproxen sodium 220 mg Tablet 220 mg PO BID RF: 0 Discharge Orders: Discharge ED (Routine); Ordered 10/19/21 Ordered By: Rishabh Garcia Referrals: Sam Street MD [Primary Care Provider] - Discharge Diet: Usual diet Discharge Activity: Increase activity as tolerated Patient Instructions: Wound Infection (ED) Activity Restrictions/Additional Instructions: Continue cefdinir as directed, start Bactrim 1 tablet twice a day for the next 7 days. Drink plenty of water. Monitor for fever greater than 100.4. Follow-up with primary care or surgeon for further treatment. Return to the ER for high fever or new concerns. Coding Level of Care Code ED Trimming Machine Set Up Operator for David Fwd Exam Comprehensive
[2021-10-19] MEDS: sulfamethoxazole-trimeth DS 160-800 mg Tablet 1 TAB PO (20:50)
[2021-10-19 20:53] VITALS: PULSE 88; RESP 18; O2SAT 98
== END 2021-10-19 20:56 | disposition home or self-care (01) ==
PROVIDERS: Emergency Provider Nurse Practitioner Family; PCP Urology
DX: T81.49XA Infection following a procedure, other surgical site, initial encounter (principal); Y83.9 Surgical procedure, unspecified as the cause of abnormal reaction of the patient, or of later complication, without mention of misadventure at the time of the procedure; Q05.9 Spina bifida, unspecified; N31.9 Neuromuscular dysfunction of bladder, unspecified; Z86.14 Personal history of Methicillin resistant Staphylococcus aureus infection; Z87.891 Personal history of nicotine dependence; Z98.2 Presence of cerebrospinal fluid drainage device
CPT/HCPCS: 80053; 83605; 85025; 87040; 87070; 87075; 87077; 87186; 87205; 99283

== ENCOUNTER 2021-10-29 14:41 | Outpatient (CLI) | payer MEDICAID, SELFPAY ==
[2021-10-29 15:45] LABS: Anion Gap 14.4 (5-19); Blood Urea Nitrogen 11 mg/dL (6-20); Carbon Dioxide 24 mmol/L (22-29); Chloride 106 mmol/L (98-107); Glomerular Filtration Rate 68.5 mL/min (90-130); Glucose 102 mg/dL (65-115); Osmolality Calculated 290 mOsm/kg (285-295); Potassium 4.4 mmol/L (3.5-5.1); Sodium 140 mmol/L (136-145)
== END 2021-10-29 14:42 | disposition home or self-care (01) ==
PROVIDERS: PCP Urology; Visit Provider Physician Assistant
DX: E23.2 Diabetes insipidus (principal)
CPT/HCPCS: 36415; 80048

== ENCOUNTER → 2021-12-18 08:58 | Outpatient (BNVA) | payer MEDICAID, SELFPAY | PROVIDERS: PCP Urology; Visit Provider Urology | DX: N31.9 Neuromuscular dysfunction of bladder, unspecified (principal); N41.1 Chronic prostatitis; N35.913 Unspecified membranous urethral stricture, male; N41.9 Inflammatory disease of prostate, unspecified | CPT/HCPCS: 81003 ==

== ENCOUNTER 2021-12-27 09:10 | Outpatient (CLI) | payer MEDICAID, SELFPAY ==
--- NOTE | 2021-12-27 09:00 | US_ITS ---
WS: [id number] RENAL ULTRASOUND HISTORY: hydronephrosis COMPARISON: 09/15/2019 TECHNIQUE: 2-D and color Doppler imaging of the kidney submitted. Right kidney: 9.3 cm x 3.9 cm x 4.8 cm. Normal echogenicity with no hydronephrosis or mass. Left kidney: 9.0 cm x 4.9 cm x 4.9 cm. Normal echogenicity with no hydronephrosis or mass. Aorta: Normal. Urinary Bladder: Moderately distended urinary bladder. There is severe diffuse wall thickening throug hout the urinary bladder. Patient has a known neurogenic bladder. US/US renal BI* [id number] IMPRESSION: 1. Normal renal ultrasound. No hydronephrosis. 2. Mildly distended bladder with diffuse bladder wall thickening from hypertro phy.
[2021-12-27 10:11] LABS: Anion Gap 12.3 (5-19); Blood Urea Nitrogen 14 mg/dL (6-20); Calcium 9.8 mg/dL (8.5-10.5); Carbon Dioxide 27 mmol/L (22-29); Chloride 104 mmol/L (98-107); Glomerular Filtration Rate 75.7 mL/min (90-130); Glucose 131 mg/dL (65-115); Osmolality Calculated 290 mOsm/kg (285-295); Potassium 4.3 mmol/L (3.5-5.1); Sodium 139 mmol/L (136-145)
== END 2021-12-27 09:11 | disposition home or self-care (01) ==
LOC: LAB 09:11
PROVIDERS: PCP Urology; Visit Provider Urology
DX: N13.30 Unspecified hydronephrosis (principal)
CPT/HCPCS: 36415; 76770; 80048

== ENCOUNTER 2022-01-13 21:11 | Emergency (ER) | payer MEDICAID, SELFPAY ==
[2022-01-13 21:24] VITALS: BP 132/72; PULSE 102; RESP 18; TEMP 36.7; O2SAT 97; BMI 23.1
--- NOTE | 2022-01-13 21:33 | XRR_ITS ---
PROCEDURE INFORMATION: Exam: XR Right Hand Exam date and time: 01/13/2022 9:45 PM Age: 36 years old Clinical indication: Injury or trauma; Other: Piece of wood hit R thumb; Blunt trauma (contusions or hematomas); Finger; Right; Additional info: Injury to right thumb TECHNIQUE: Imaging protocol: XR Right hand. Views: 3 or more views. COMPARISON: No relevant prior studies available. FINDINGS: Bones/joints: Normal. Soft tissues: Normal. XR/XR hand RT min 3V* [id number] IMPRESSION: No acute findings.
--- NOTE | 2022-01-13 21:34 | W.ED.EXTPRO ---
HPI - Extremity Problem General: Chief complaint: Extremity Injury, Upper Stated complaint: L hand injury Time Seen by Provider: 01/13/22 21:15 History of Present Illness: Patient is a 36-year-old male comes to the ED with right thumb injury. Injury occurred just prior to arrival. He was loading up some firewood in the back of his truck. He went to close the tailgate and it popped back hitting patient's right thumb. He now reports 8 out of 10 pain in his right thumb. He has limited range of motion in right thumb due to pain. He has not taken anything for pain before coming to the ED and does not currently want anything here in the ED for pain. Associated symptoms: Deny chest pain, fever(s) or rash Review of Systems Const: Denies: fever(s), chills or fatigue Eyes: Denies: change in vision or eye discomfort ENMT: Denies: throat pain, odynophagia, nasal discharge or nasal congestion Card: Denies: chest pain, palpitations, edema, swelling of feet/ankles, dyspnea on exertion or orthopnea Resp: Denies: dyspnea, productive cough or non-productive cough GI: Denies: abdominal pain, nausea, vomiting, diarrhea, constipation or hematochezia : Denies: flank pain, difficulty urinating, dysuria or hematuria Musc: Reports: extremity pain (Right thumb) and extremity swelling (Right thumb); Denies: neck pain or back pain Skin/Breast: Denies: rash or new lesions Neuro: Denies: headache(s), numbness in extremities or weakness in extremities REPLACED BY [facility] PFSH: Medical History History of right foot drop CORRECTIVE SURGERY Hx of spina bifida SURGERY Membranous urethral stricture Neurogenic bladder Prostatitis Surgical History History of brain shunt History of pituitary surgery Hx of circumcision Family History Father Diabetes Mother Diabetes Social History Smoking and tobacco status: current some day smoker Alcohol intake: current Alcohol intake frequency: holidays/special occasions only Caregiver/support person: No Lives independently: Yes Marital status: Current occupational status: disabled History of recent travel: No Physical Exam Const: COMMON NORMALS: no acute distress, patient oriented x3 and alert GENERAL APPEARANCE: cooperative and comfortable HENMT: COMMON NORMALS: normocephalic HEAD & SCALP: normocephalic MOUTH: Normal oral and palatal mucosa present THROAT: posterior oropharynx normal and uvula midline Neck/C-Spine: COMMON NORMALS: supple GENERAL: Yes normal visual inspection Resp: COMMON NORMALS: normal respiratory effort, No retractions, No use of accessory muscles and clear to auscultation bilaterally AUSCULTATION: clear to auscultation bilaterally Cardio: COMMON NORMALS: regular rate, regular rhythm, S1 normal heart sound present, S2 normal heart sound present, No gallops present (Cardio), No clicks present (Cardio), No murmurs present (Cardio) and Peripheral pulses 2+ throughout RATE: regular rate RHYTHM: regular rhythm HEART SOUNDS: S1 normal heart sound present and S2 normal heart sound present PERIPHERAL PULSES: Peripheral pulses 2+ throughout GI: COMMON NORMALS: Normal to inspection, nondistended, normoactive bowel sounds present, Soft to palpation, non-tender and no masses PALPATION: Yes Soft to palpation : COMMON NORMALS: Yes no CVA tenderness BLADDER/KIDNEY EXAM: Yes no CVA tenderness Back/Pelvis: COMMON NORMALS: no CVA tenderness Extremity: NARRATIVE EXTREMITY EXAM: No damage to nail or nailbed of right thumb. RIGHT UPPER EXTREMITY: Yes hand & digits Right hand and digits: Yes inspection (No visible deformity seen, swelling noted in thumb), Yes palpation (Tenderness to palpation of thumb), Yes ROM exam (Limited range of motion in thumb due to pain) and Yes neurovascular exam (Intact) Neuro: COMMON NORMALS: patient oriented x3 and moves all extremities SENSORIUM/ORIENTATION: Yes alert Skin: GENERAL SKIN EXAM: dry skin Course Vital Signs: Vital signs: Vital Signs Temperature 98.1 F 01/13/22 21:24 Pulse Rate 97 01/13/22 22:38 Respiratory Rate 16 01/13/22 22:38 Blood Pressure 109/80 01/13/22 22:38 Pulse Oximetry 97 01/13/22 22:38 MDM - Extremity (Nontraumatic) Medical Decision Making Patient is a 36-year-old male comes to the ED with an injury to right thumb. Vital stable. right hand exam No visible deformity seen. No nail or nailbed damage noted. Patient does have some thenar swelling and tenderness. Limited range of motion due to pain. Neurovascular tact distally. X-ray of right hand showed no acute fractures or findings. Patient diagnosed with sprain of right thumb and was discharged home. He was told to follow-up with his PCP in the next week for reevaluation. Take [id number] ibuprofen or Aleve for pain and inflammation. Return to ED precautions given. Patient understood and agreed with plan. Lab Data Radiology Impressions Hand X-Ray 01/13/22 21:33 IMPRESSION: No acute findings. Discharge Plan Discharge Patient Disposition: Home Clinical Impression: Sprain of right thumb Qualifiers: Encounter type: initial encounter Sprain of finger site: metacarpophalangeal joint Qualified Code(s): S63.641A - Sprain of metacarpophalangeal joint of right thumb, initial encounter Condition: Stable Prescriptions: No Action Centrum Men 8 mg iron- 200 mcg-600 mcg tablet PO DAILY 0RF ciprofloxacin HCl 500 mg tablet 500 mg PO BID Qty: 60 3RF desmopressin 10 mcg/spray (0.1 mL) spray with pump See Rx Instructions .ROUTE .COMPLEX 0RF Rx Instructions: 1 spray to right nostril bid alternating with left nostril atorvastatin 40 mg tablet 40 mg PO BEDTIME 0RF Discharge Orders: Discharge ED (Routine); Ordered 01/13/22 Ordered By: Manav Mcneal Referrals: Sam Street MD [Primary Care Provider] - Discharge Diet: Regular Discharge Activity: Increase activity as tolerated Activity Restrictions/Additional Instructions: Follow-up with medical provider as directed in the next 7 to 10 days for reevaluation. Take [id number] ibuprofen or Tylenol for pain. Apply cold pack on multiple times a day to help with symptoms. Return to the ER or your medical provider if condition worsens. Please read and understand discharge instructions. Thank you for choosing [facility] for your healthcare needs today. Please realize this is an emergency room and that we are providing you with a medical screening exam and this may not be complete and all inclusive of all the testing and or work up that you may need to determine your ailment or severity of your illness. It is very important that you follow up as instructed or that you return to the Emergency Department should you have concerns or if your condition changes or worsens in any way. Coding Level of Care Code ED Information Technology Data Analyst for Chg Fwd Exam Comprehensive
[2022-01-13 21:38] VITALS: BP 132/95; PULSE 104; RESP 15; O2SAT 95
[2022-01-13 22:38] VITALS: BP 109/80; PULSE 97; RESP 16; O2SAT 97
== END 2022-01-13 22:38 | disposition home or self-care (01) ==
PROVIDERS: Emergency Provider Physician Assistant; PCP Urology
DX: S63.641A Sprain of metacarpophalangeal joint of right thumb, initial encounter (principal); X58.XXXA Exposure to other specified factors, initial encounter; F17.210 Nicotine dependence, cigarettes, uncomplicated
CPT/HCPCS: 73130; 99283

== ENCOUNTER → 2022-03-19 08:48 | Outpatient (BNVA) | payer MEDICAID, SELFPAY | PROVIDERS: PCP Urology; Visit Provider Urology | DX: N35.913 Unspecified membranous urethral stricture, male (principal); N31.9 Neuromuscular dysfunction of bladder, unspecified; N41.9 Inflammatory disease of prostate, unspecified | CPT/HCPCS: 52281; 99213 ==

== ENCOUNTER → 2022-03-22 10:47 | Outpatient (BNVA) | payer MEDICAID, SELFPAY | PROVIDERS: PCP Urology; Visit Provider Urology | DX: N35.913 Unspecified membranous urethral stricture, male (principal); N31.9 Neuromuscular dysfunction of bladder, unspecified | CPT/HCPCS: 51702; 99213 ==

== ENCOUNTER → 2022-06-20 12:37 | Outpatient (BNVA) | payer MEDICAID, SELFPAY | PROVIDERS: PCP Pediatrics; Visit Provider Urology | DX: N41.1 Chronic prostatitis (principal); N35.913 Unspecified membranous urethral stricture, male; N41.9 Inflammatory disease of prostate, unspecified; N31.9 Neuromuscular dysfunction of bladder, unspecified | CPT/HCPCS: 99213 ==

== ENCOUNTER → 2022-07-29 08:07 | Outpatient (BNVA) | payer MEDICAID, SELFPAY | PROVIDERS: PCP Pediatrics; Visit Provider Thoracic Surgery (Cardiothoracic Vascular Surgery) | DX: T81.31XD Disruption of external operation (surgical) wound, not elsewhere classified, subsequent encounter (principal); Y83.8 Other surgical procedures as the cause of abnormal reaction of the patient, or of later complication, without mention of misadventure at the time of the procedure; I96 Gangrene, not elsewhere classified | CPT/HCPCS: 11042; 87070; 87077; 87186; 99213 ==

== ENCOUNTER → 2022-08-05 09:33 | Outpatient (BNVA) | payer MEDICAID, SELFPAY | PROVIDERS: PCP Pediatrics; Visit Provider Thoracic Surgery (Cardiothoracic Vascular Surgery) | DX: T81.31XD Disruption of external operation (surgical) wound, not elsewhere classified, subsequent encounter (principal); Y83.8 Other surgical procedures as the cause of abnormal reaction of the patient, or of later complication, without mention of misadventure at the time of the procedure; I96 Gangrene, not elsewhere classified | CPT/HCPCS: 97597; A6210; A6212 ==

== ENCOUNTER → 2022-08-12 09:31 | Outpatient (BNVA) | payer MEDICAID, SELFPAY | PROVIDERS: PCP Pediatrics; Visit Provider Thoracic Surgery (Cardiothoracic Vascular Surgery) | DX: T81.31XD Disruption of external operation (surgical) wound, not elsewhere classified, subsequent encounter (principal); Y83.8 Other surgical procedures as the cause of abnormal reaction of the patient, or of later complication, without mention of misadventure at the time of the procedure; I96 Gangrene, not elsewhere classified | CPT/HCPCS: 99212; A6212 ==

== ENCOUNTER → 2022-08-19 09:00 | Outpatient (BNVA) | payer MEDICAID, SELFPAY | PROVIDERS: PCP Pediatrics; Visit Provider Nurse Practitioner Family | DX: T81.31XD Disruption of external operation (surgical) wound, not elsewhere classified, subsequent encounter (principal); Y83.8 Other surgical procedures as the cause of abnormal reaction of the patient, or of later complication, without mention of misadventure at the time of the procedure; I96 Gangrene, not elsewhere classified | CPT/HCPCS: 11042 ==

== ENCOUNTER 2022-08-26 07:35 | Outpatient (CLI) | payer MEDICAID, SELFPAY ==
[2022-08-26] MEDS: iohexol 350 mg/mL 100 mL Btl IV (08:14)
--- NOTE | 2022-08-26 08:30 | CT_ITS ---
WS: [id number] CT ABDOMEN WITH CONTRAST HISTORY: T81.31XS - Disruption of external operation (surgical) wound, RIGHT upper quadrant skin also from an old shunt removal in September. Contiguous single phase 5 mm axial imaging performed to the abdomen. Oral contrast has not been provi ded. Coronal and sagittal reformats are submitted. All CT scans at [facility] use at least on e of these dose optimization techniques: automated exposure control; mA and/or kV adjustment per mike ent size (includes targeted exams where dose is matched to clinical indication); or iterative reconst ruction. CONTRAST: Omnipaque 350; 95 mL IV. DLP: 459.65 mGy.cm COMPARISON: 09/17/2019 Lower thorax: Unremarkable. Liver: Normal. No intrahepatic dilatation. Gallbladder: Normal. Pancreas: Unremarkable as visualized. Pancreatic body and tail are difficult to separate from the adj acent GI tract. Spleen: Normal. Adrenals: Normal. Right kidney: Normal size. Tiny cortical hypodensity lower pole is too small to characterize. No obst ruction or solid mass. Left kidney: Normal. Aorta: Normal. GI tract: No oral contrast was given for this examination. Stomach is well distended. No proximal sma ll bowel obstruction. The colon within the visualized abdomen demonstrates moderate tortuosity and fe divine retention. No adenopathy or free fluid. Abdominal wall: Intact BUSINESS CONTINUITY SPECIALIST shunt catheter traverses along the anterior abdominal wall and enters the p eritoneal cavity above the umbilicus in the midline. Catheter is coiled just beneath the abdominal wa ll. There is an additional catheter extending from the RIGHT lateral abdominal wall over the lower li jn. This catheter has only been partially removed. The external component is no longer present. The residual catheter enters the peritoneal cavity on the RIGHT anterolateral abdominal wall crossing the midline to terminate centrally. The length of additional catheter is approximately 9 to 10 cm. There is a small amount of soft tissue thickening which would correlate with the subcutaneous ulcer along the RIGHT lateral abdominal wall. No fluid collection. Mild fibrosis and soft tissue thickening measu ring 10 mm. Visualized osseous structures: Negative. CT/CT abdomen w con* [id number] IMPRESSION: 1. Residual BUSINESS CONTINUITY SPECIALIST shunt catheter measures approximately 9 to 10 cm extending from the anterolateral RIGHT abdominal wall to the midline of the abdomen. 2. Small soft tissue thickening measuring 10 mm corresponds to the catheter wh ich terminates in the subcutaneous soft tissues. No fluid collection or abscess . Probably soft tissue scarring and fibrosis in the soft tissues corresponding to the catheter. 3. New BUSINESS CONTINUITY SPECIALIST shunt catheter enters along the midline of the abdominal wall.
== END 2022-08-26 07:36 | disposition home or self-care (01) ==
LOC: RAD 07:36
PROVIDERS: PCP Pediatrics; Visit Provider Thoracic Surgery (Cardiothoracic Vascular Surgery)
DX: T81.31XS Disruption of external operation (surgical) wound, not elsewhere classified, sequela (principal)
CPT/HCPCS: 11042; 74160; A6212; Q9967

== ENCOUNTER → 2022-09-02 09:15 | Outpatient (BNVA) | payer MEDICAID, SELFPAY | PROVIDERS: PCP Pediatrics; Visit Provider Nurse Practitioner Family | DX: I96 Gangrene, not elsewhere classified (principal); T81.31XD Disruption of external operation (surgical) wound, not elsewhere classified, subsequent encounter; Y83.8 Other surgical procedures as the cause of abnormal reaction of the patient, or of later complication, without mention of misadventure at the time of the procedure | CPT/HCPCS: 99212; A6212 ==

== ENCOUNTER 2024-06-03 19:06 | Emergency (ER) | payer MEDICAID, SELFPAY ==
--- NOTE | 2024-06-03 19:09 | CTR_ITS ---
PROCEDURE INFORMATION: Exam: CT Head Without Contrast Exam date and time: 06/03/2024 7:10 PM Age: 38 years old Clinical indication: Stroke-like symptoms; Other: Both numbness/paresthesia; Additional info: Stroke like symptoms TECHNIQUE: Imaging protocol: Computed tomography of the head without contrast. Radiation optimization: All CT scans at this facility use at least one of these dose optimization techniques: automated exposure control; mA and/or kV adjustment per patient size (includes targeted exams where dose is matched to clinical indication); or iterative reconstruction. Other technique: STROKE PROTOCOL was implemented. COMPARISON: CT head wo con* [id number] 11/11/2017 12:21 PM RADIATION DOSE METRICS: Total DLP (mGy-cm): 945 FINDINGS: Tubes, catheters and devices: Stable right frontal BIBLE WORKER shunt catheter with tip in the right frontal horn. Stable right parietal BIBLE WORKER shunt catheter with tip in the posterior left lateral ventricle. Brain: Stable small calcification in right frontal periventricular white matter. The sulci are normal. No abnormal brain attenuation. No intracranial hemorrhage. Cerebral ventricles: Stable hydrocephalus asymmetric dilatation of the posterolateral ventricles and occipital horns. Paranasal sinuses: Visualized sinuses are unremarkable. No fluid levels. Mastoid air cells: Visualized mastoid air cells are well aerated. Auditory system: Cerumen in the external auditory canals. Bones: Unremarkable. No acute fracture. Soft tissues: Unremarkable. CT/CT head wo con* [id number] IMPRESSION: 1. No acute intracranial abnormality. 2. 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 ASSESSMENT: ASPECTS ([place] Stroke Program Early CT Score) is 10.
--- NOTE | 2024-06-03 19:09 | CTR_ITS ---
PROCEDURE INFORMATION: Exam: CTA Head With Contrast, Arteriography Exam date and time: 06/03/2024 7:15 PM Age: 38 years old Clinical indication: Stroke-like symptoms; Left upper extremity and left lower extremity numbness/paresthesia; Additional info: Stroke like symptoms TECHNIQUE: Imaging protocol: Computed tomographic angiography of the head with contrast. Exam focused on the arteries. 3D rendering (Not supervised by radiologist): MIP and/or 3D reconstructed images were created by the technologist. Radiation optimization: All CT scans at this facility use at least one of these dose optimization techniques: automated exposure control; mA and/or kV adjustment per patient size (includes targeted exams where dose is matched to clinical indication); or iterative reconstruction. Contrast material: OMNI 350; Contrast volume: 100 ml; Contrast route: INTRAVENOUS (IV); COMPARISON: CT head wo con* [id number] 06/03/2024 7:10 PM RADIATION DOSE METRICS: Total DLP (mGy-cm): 476 FINDINGS: ANTERIOR CIRCULATION: Right internal carotid artery: Intracranial segment is patent with no significant stenosis. No aneurysm. Right middle cerebral artery: No occlusion or significant stenosis. No aneurysm. Right anterior cerebral artery: No occlusion or significant stenosis. No aneurysm. Left internal carotid artery: Intracranial segment is patent with no significant stenosis. No aneurysm. Left middle cerebral artery: No occlusion or significant stenosis. No aneurysm. Left anterior cerebral artery: No occlusion or significant stenosis. No aneurysm. POSTERIOR CIRCULATION: Right vertebral artery: No occlusion or significant stenosis. No aneurysm. Left vertebral artery: No occlusion or significant stenosis. No aneurysm. Basilar artery: No occlusion or significant stenosis. No aneurysm. Right posterior cerebral artery: No occlusion or significant stenosis. No aneurysm. Left posterior cerebral artery: No occlusion or significant stenosis. No aneurysm. Brain: Stable small calcification in right frontal periventricular white matter. The sulci are normal. No abnormal brain attenuation. No intracranial hemorrhage. There is stable chronic herniation of the cerebellar tonsils inferior to the foramen magnum. Cerebral ventricles: Stable hydrocephalus asymmetric dilatation of the posterolateral ventricles and occipital horns. Auditory system: Cerumen in the external auditory canals. Mastoid air cells: Visualized mastoid air cells are well aerated. Paranasal sinuses: Visualized sinuses are unremarkable. No fluid levels. Teeth: The upper teeth are missing. Large lisette in the lower right 2nd molar. Bones/joints: Unremarkable. No acute fracture. Soft tissues: Unremarkable. PROCEDURE INFORMATION: Exam: CTA Neck With Contrast Exam date and time: 06/03/2024 7:15 PM Age: 38 years old Clinical indication: Stroke-like symptoms; Left upper extremity and left lower extremity numbness/paresthesia; Additional info: Stroke like symptoms TECHNIQUE: Imaging protocol: Computed tomographic angiography of the neck with contrast. Exam focused on the cervical segments of the vasculature. 3D rendering (Not supervised by radiologist): MIP and/or 3D reconstructed images were created by the technologist. Radiation optimization: All CT scans at this facility use at least one of these dose optimization techniques: automated exposure control; mA and/or kV adjustment per patient size (includes targeted exams where dose is matched to clinical indication); or iterative reconstruction. Contrast material: OMNI 350; Contrast volume: 100 ml; Contrast route: INTRAVENOUS (IV); COMPARISON: CT head wo con* [id number] 06/03/2024 7:10 PM RADIATION DOSE METRICS: Total DLP (mGy-cm): 476 FINDINGS: Right common carotid artery: No stenosis. No dissection or occlusion. Right internal carotid artery: No stenosis of the extracranial segment. No dissection or occlusion. Right external carotid artery: No occlusion or stenosis of the origin. Left common carotid artery: No stenosis. No dissection or occlusion. Left internal carotid artery: No stenosis of the extracranial segment. No dissection or occlusion. Left external carotid artery: No occlusion or stenosis of the origin. Right vertebral artery: No stenosis. No dissection or occlusion. Left vertebral artery: No stenosis. No dissection or occlusion. Soft tissues: Normal. No significant soft tissue swelling. Bones/joints: No acute fracture. CT/CT angio headneck* [id number] IMPRESSION: 1. No large vessel occlusion or stenosis. IMPRESSION: No stenosis or occlusion. REFERENCES: NASCET CRITERIA. The degree of stenosis in the cervical segment of the internal carotid artery is based on NASCET criteria. Normal is no stenosis. Mild is less than 50% stenosis. Moderate is 50-69% stenosis. Severe is 70% to 99% stenosis. Total occlusion is no detectable patent lumen.
--- NOTE | 2024-06-03 19:16 | XRR_ITS ---
PROCEDURE INFORMATION: Exam: XR Chest Exam date and time: 06/03/2024 7:39 PM Age: 38 years old Clinical indication: Shortness of breath; Prior surgery; Surgery date: 6+ months; Surgery type: Shunt; Additional info: Left sided numbness tingling TECHNIQUE: Imaging protocol: Radiologic exam of the chest. Views: 1 view. COMPARISON: CT chest con [id number] 12/21/2020 4:25 PM FINDINGS: Tubes, catheters and devices: Intact right SUPERINTENDENT AUTOMOTIVE shunt catheter. Lungs: Unremarkable. No consolidation. Pleural spaces: Unremarkable. No pleural effusion. No pneumothorax. Heart/Mediastinum: Unremarkable. No cardiomegaly. Bones/joints: Unremarkable. XR/XR chest 1V portable [id number] IMPRESSION: No acute findings.
[2024-06-03 19:26] VITALS: BP 121/90; PULSE 93; RESP 15; TEMP 36.7; O2SAT 96; BMI 23.3
--- NOTE | 2024-06-03 19:31 | ECG_ITS ---
[facility] Test Date: 2024-06-03 Pat Name: Fredis Mccullough Department: Room: Gender: Male Display Card Writer: : 1985 Requested By: Perfecto Villarreal Order Number: [id number] Darya MD: Sury Hill M.D. Measurements Intervals [place] Rate: 90 P: 78 TN: 170 QRS: 68 QRSD: 82 T: 70 QT: 332 QTc: 407 Interpretive Statements SINUS RHYTHM POSSIBLE RIGHT VENTRICULAR CONDUCTION DELAY [RSR (QR) IN V1/V2] No previous ECG available for comparison Electronically Signed On 06-04-2024 16:58:55 CDT by Sury Hill M.D. [id number]
[2024-06-03] MEDS: iohexol 350 mg/mL 500 mL Btl (per mL) IV (19:32)
[2024-06-03 19:37] LABS: Basophils # 0.1 10^3/uL (0.0-0.1); Basophils % 1.1 %; Eosinophils # 0.3 10^3/uL (0.0-0.8); Eosinophils % 4.6 %; Hematocrit 44.2 % (37-53); Lymphocytes # 1.6 10^3/uL (0.8-4.8); Lymphocytes % 26.1 %; Mean Corpuscular HGB Conc 33.9 g/dL (30-55); Mean Corpuscular Hemoglobin 29.9 pg (27-33); Mean Corpuscular Volume 88.2 fl (82-101); Mean Platelet Volume 9.9 fL (7.4-10.4); Monocytes # 0.5 10^3/uL (0.2-0.9); Monocytes % 8.3 %; Neutrophils # 3.75 10^3/uL (1.8-7.7); Neutrophils % 59.6 %; Nucleated Red Blood Cells % 0 %; Platelet Count 187 10^3/cmm (157-399); Red Blood Count 5.01 10^6/uL (3.85-5.65); Red Cell Distribution Width 12.2 % (12.1-15.1); White Blood Count 6.29 10^3/uL (3.29-11.43)
--- NOTE | 2024-06-03 19:42 | ED_ITS ---
HPI - Neuro Symptoms/Deficit 2 General: Chief Complaint: Neuro Symptoms/Deficit Stated Complaint: AMS Time Seen by Provider: 06/03/24 19:15 History of Present Illness: Presents to the ER with complaints of left-sided numbness and tingling from his head down to about his mid calf. This all started about 630 tonight. He says started in his left hand went up his arm went up his neck into the side of his head and then proceeded to go down the left side of his body all the way down through his leg to his calf. Patient has never had any symptoms like this before. Patient is able to move all extremities and walk on his own. No other focal neurodeficits are noted. Patient does have a history of spina bifida with right foot drop and neurogenic bladder. Patient is on no anticoagulation. Related Data Home Medications Medication Instructions Recorded Confirmed desmopressin 10 mcg/spray (0.1 mL) See Rx Instructions .Route .COMPLEX 06/29/20 05/20/24 nasal spray (non-refrigerated) atorvastatin 40 mg tablet 40 mg PO BEDTIME 04/07/21 05/20/24 multivit,Ca,min-iron 8 mg-folic tab PO DAILY 12/18/21 05/20/24 acid 200 mcg-lycopene 600 mcg tablet (Centrum Men) Previous Rx's Medication Instructions Recorded amoxicillin 875 mg-potassium 1 tab PO BID 7 days #14 tabs 05/20/24 clavulanate 125 mg tablet sulfamethoxazole 800 1 tab PO BID #14 tabs 06/03/24 mg-trimethoprim 160 mg tablet (Bactrim DS) Allergies Allergy/AdvReac Type Severity Reaction Status Date / Time No Known Allergies Allergy Verified 05/20/24 10:19 Review of Systems 2 General: Reports: 10 or more systems reviewed and unremarkable except in HPI and below PFSH ED 2 PFSH: Medical History Membranous urethral stricture Neurogenic bladder Hx of spina bifida SURGERY History of right foot drop CORRECTIVE SURGERY Prostatitis Surgical History History of brain shunt Hx of circumcision History of pituitary surgery Family History Father Diabetes Mother Diabetes Social History Smoking and tobacco/nicotine status: unknown if used tobacco/nicotine Alcohol intake: current Alcohol intake frequency: holidays/special occasions only Substance/Drug Use: unknown Caregiver/support person: No Lives independently: Yes Marital status: Current occupational status: disabled NIH stroke score 2 NIHSS: Level Of Consciousness - 1a: 0 Level Of Consciousness Questions - 1b: Both Correct Level Of Consciousness Commands - 1c: Both Correct Best Gaze - 2: Normal Visual [place] - 3: No Visual Loss Facial Palsy - 4: N ormal Motor Arm Right - 5: No Drift Motor Arm Left - 5: No Drift Motor Leg Right - 6: No Drift Motor Leg Left - 6: No Drift Limb Ataxia - 7: A bsent Sensory - 8: Normal Best Language - 9: No Aphasia Dysarthia - 10: Normal Extinction And Inattention - 11: 0 Score: Total Score: 0 Physical Exam 2 Const: COMMON NORMALS: no acute distress, average body habitus, patient oriented x3, no limitations, healthy appearing, alert and well nourished HENMT: COMMON NORMALS: normocephalic, atraumatic, hearing grossly normal bilaterally, external ears normal, Normal external nose present and moist oral mucous membranes HEAD & SCALP: normocephalic and atraumatic NOSE: Normal external nose present EXTERNAL EAR: Yes external ears normal Eye: COMMON NORMALS: Equal, round and reactive pupils present, EOMs intact bilaterally, conjunctivae normal and no scleral icterus CONJUNCTIVA: Yes conjunctivae normal PUPIL: Yes Equal, round and reactive pupils present Neck/C-Spine: COMMON NORMALS: full ROM, no lymphadenopathy, supple, no meningeal signs, no JVD and Thyroid normal THYROID: Thyroid normal Lymph: LYMPHATIC: no lymphadenopathy noted and no lymphedema noted Chest: COMMONS NORMALS: normal inspection of the chest and normal palpation of entire chest wall Resp: COMMON NORMALS: normal respiratory effort, No retractions, No use of accessory muscles and clear to auscultation bilaterally AUSCULTATION: clear to auscultation bilaterally Cardio: COMMON NORMALS: no JVD, regular rate, regular rhythm, S1 normal heart sound present, S2 normal heart sound present, No gallops present (Cardio), No clicks present (Cardio), No murmurs present (Cardio) and No rub (Cardio) R ATE: regular rate RHYTHM: regular rhythm HEART SOUNDS: S1 normal heart sound present and S2 normal heart sound present GI: COMMON NORMALS: Normal to inspection, nondistended, normoactive bowel sounds present, Soft to palpation, non-tender, No hepatosplenomegaly present and no masses PALPATION: Yes Soft to palpation and Yes No hepatosplenomegaly present Neuro: COMMON NORMALS: patient oriented x3 SENSORIUM/ORIENTATION: Yes alert MENINGEAL SIGNS: Yes no meningeal signs OTHER: No focal neurodeficits noted. Course 2 Vital Signs: Vital signs: Vital Signs Temperature 98.1 F 06/03/24 19:26 Pulse Rate 96 06/03/24 21:00 Respiratory Rate 16 06/03/24 21:00 Blood Pressure 115/83 06/03/24 21:00 Pulse Oximetry 99 06/03/24 21:00 Oxygen Delivery Me thod Room Air 06/03/24 19:26 MDM - Neuro Symptoms/Deficit Medical Decision Making Results discussed with patient and Dr. Gonzalez, we will put the patient on full-strength aspirin and have him follow-up with Dr. Gonzalez on Friday. Will also put him on Bactrim for his urinary tract infection. Lisa thinks this may be just more of a jacksonian march type seizure. Medical Records I reviewed the patient's medical records. Lab Data I reviewed the patient's lab results. 06/03/24 19:30 06/03/24 19:[address] 06/03/24 19:09 IMPRESSION: 1. No acute intracranial abnormality. 2. Stable hydrocephalus with 2 HAND WORKER shunt catheters in stable position. ASSESSMENT: ASPECTS ([place] Stroke Program Early CT Score) is 10. ADDENDUM: 06/03/242005 There is herniation of the cerebellar tonsils below the foramen magnum, consistent with a Chiari 1 malformation. Head/Neck CTA 06/03/24 19:09 IMPRESSION: 1. No large vessel occlusion or stenosis. IMPRESSION: No stenosis or occlusion. REFERENCES: NASCET CRITERIA. The degree of stenosis in the cervical segment of the internal carotid artery is based on NASCET criteria. Normal is no stenosis. Mild is less than 50% stenosis. Moderate is 50-69% stenosis. Severe is 70% to 99% stenosis. Total occlusion is no detectable patent lumen. Chest X-Ray 06/03/24 19:16 IMPRESSION: No acute findings. Laboratory Results WBC 6.29 10^3/uL (3.29-11.43) 06/03/24 19:30 RBC 5.01 10^6/uL (3.85-5.65) 06/03/24 19:30 Hgb 15.00 g/dL (11.27-16.99) 06/03/24 19:30 Hct 44.2 % (37-53) 06/03/24 19:30 MCV 88.2 fl (82-101) 06/03/24 19:30 MCH 29.9 pg (27-33) 06/03/24 19: MCHC 33.9 g/dL (30-55) 06/03/24 19:30 RDW 12.2 % (12.1-15.1) 06/03/24 19:30 Plt Count 187 10^3/cmm (157-399) 06/03/24 19:30 MPV 9.9 fL (7.4-10.4) 06/03/24 19:30 Neut % (Auto) 59.6 % 06/03/24 19:30 Lymph % (Auto) 26.1 % 06/03/24 19:30 [place] % (Auto) 8.3 % 06/03/24 19:30 Eos % (Auto) 4.6 % 06/03/24 19:30 Baso % (Auto) 1.1 % 06/03/24 19:30 Neut # (Auto) 3.75 10^3/uL (1.8-7.7) 06/03/24 19:30 Lymph # (Auto) 1.6 10^3/uL (0.8-4.8) 06/03/24 19:30 [place] # (Auto) 0.5 10^3/uL (0.2-0.9) 06/03/24 19:30 Eos # (Auto) 0.3 10^3/uL (0.0-0.8) 06/03/24 19:30 Baso # (Auto) 0.1 10^3/uL (0.0-0.1) 06/03/24 19:30 Nucleated RBC % (auto) 0 % 06/03/24 19:30 Nucleated RBCs # 0.0 /100WBC 06/03/24 19:30 Sodium 133 mmol/L (136-145) L 06/03/24 19:30 Potassium 3.9 mmol/L (3.5-5.1) 06/03/24 19:30 Chloride 97 mmol/L (98-107) L 06/03/24 19:30 Carbon Dioxide 25 mmol/L (22-29) 06/03/24 19:30 Anion Gap 14.9 (5-19) 06/03/24 19:30 BUN 10 mg/dL (6-20) 06/03/24 19:30 Creatinine 1.1 mg/dL (0.7-1.2) 06/03/24 19:30 GFR Calculation 74.9 mL/min (90-130) L 06/03/24 19:30 Glucose 98 mg/dL (65-115) 06/03/24 19:30 Calculated Osmolality 275 mOsm/kg (285-295) L 06/03/24 19:30 Calcium 8.6 mg/dL (8.5-10.5) 06/03/24 19:30 Magnesium 1.9 mg/dL (1.7-2.3) 06/03/24 19:30 Total Bilirubin 0.7 mg/dL (0.15-1.2) 06/03/24 19:30 AST 9 U/L (0-40) 06/03/24 19:30 ALT 10 U/L (0-41) 06/03/24 19:30 Alkaline Phosphatase 50 U/L (40-130) 06/03/24 19:30 Troponin T Baseline < 6 ng/L (0-15) 06/03/24 19:30 C-Reactive Protein 3.0 mg/L (0.0-4.9) 06/03/24 19:30 Total Protein 5.6 g/dL (6.6-8.7) L 06/03/24 19:30 Albumin 3.7 g/dL (3.5-5.2) 06/03/24 19:30 Globulin 1.9 g/dL (1.3-4.6) 06/03/24 19:30 TSH 2.29 uIU/mL (0.27-4.20) 06/03/24 19:30 Urine Color Yellow (Yellow) 06/03/24 20:10 Urine Appearance Clear (CLEAR) 06/03/24 20:10 Urine pH 6.0 (5-7) 06/03/24 20:10 Ur Specific [place] 1.027 (1.005-1.030) 06/03/24 20:10 Urine Protein Negative (Negative) 06/03/24 20:10 Urine Glucose (UA) Negative (Normal) 06/03/24 20:10 Urine Ketones Negative (Negative) 06/03/24 20:10 Urine Blood Negative (Negative) 06/03/24 20:10 Urine Nitrate Negative (Negative) 06/03/24 20:10 Urine Bilirubin Negative (Negative) 06/03/24 20:10 Urine Urobilinogen 1.0 mg/dL (Negative) 06/03/24 20:10 Ur Leukocyte Esterase 2+ (Negative) A 06/03/24 20:10 Urine RBC None /hpf (0-2) 06/03/24 20:10 Urine WBC 25-40 /hpf (0-5) H 06/03/24 20:10 Ur Squamous Epith Cells None /hpf (0-5) 06/03/24 20:10 Amorphous Sediment Not Reportable 06/03/24 20:10 Urine Bacteria 3+ /hpf (NONE) H 06/03/24 20:10 Urine Opiates Screen Negative ng/mL (Negative) 06/03/24 20:10 Ur Barbiturates Screen Negative ng/mL (Negative) 06/03/24 20:10 Ur Phencyclidine Scrn Negative ng/mL (Negative) 06/03/24 20:10 Ur Amphetamines Screen Negative ng/mL (Negative) 06/03/24 20:10 U Benzodiazepines Scrn Negative ng/mL (Negative) 06/03/24 20:10 Urine Cocaine Screen Negative ng/mL (Negative) 06/03/24 20:10 U Marijuana (THC) Screen Negative ng/mL (Negative) 06/03/24 20:10 All radiology interpretation(s) finalized by discharge Discharge Plan Discharge Patient Disposition: Home Clinical Impression: Acute lower urinary tract infection, Brain TIA Condition: Stable Prescriptions: New Bactrim DS 800-160 mg tablet 1 tab PO BID Qty: 14 0RF No Action Centrum Men 8 mg iron- 200 mcg-600 mcg tablet PO DAILY desmopressin 10 mcg/spray (0.1 mL) spray with pump See Rx Instructions .ROUTE .COMPLEX Rx Instructions: 1 spray to right nostril bid alternating with left nostril amoxicillin-pot clavulanate 875-125 mg tablet 1 tab PO BID 7 Days Qty: 14 0RF atorvastatin 40 mg tablet 40 mg PO BEDTIME Discharge Orders: Discharge ED (Routine); Ordered 06/03/24 Ordered By: Perfecto Villarreal Referrals: Moo Ritter MD [Primary Care Provider] - 1 week Patient Instructions: Urinary Tract Infection - Men, TIA Activity Restrictions/Additional Instructions: Please take all antibiotics as directed. Please follow-up with Dr. Gonzalez in his office next Friday at 8 AM for further evaluation treatment. Please take a full-strength 325 mg aspirin daily. Thank you for choosing [facility] for your healthcare needs today. Please realize that you were seen in the emergency department and that we are providing you with an emergency medical screening exam and this may not be a complete and all exclusive of all testing and/or medical workup we may need to determine your element or severity of your illness. It is very important that you follow-up as instructed with your primary care provider or specialist for the additional evaluation and to discuss your medical treatment plan. You may return to the emergency department should you have concerns or if your condition changes or worsens in any way. Coding Level of Care Code ED Svp Monetization for David Masterson
[2024-06-03 19:45] VITALS: BP 122/89; PULSE 86; RESP 16; O2SAT 98
[2024-06-03 20:12] LABS: Charge for UA Resulting for Rev
[2024-06-03 20:15] VITALS: BP 114/91; PULSE 83; RESP 14; O2SAT 99
[2024-06-03 20:15] LABS: Bilirubin Urine Negative (Negative); Blood Urine Negative (Negative); Glucose Urine UA Negative (Normal); Ketones Urine Negative (Negative); Leukocyte Esterase Urine 2+ (Negative); Nitrate Urine Negative (Negative); Protein Urine Negative (Negative); Specific Gravity, Urine 1.027 (1.005-1.030); Urine Appearance Clear (CLEAR); Urine Color Yellow (Yellow)
[2024-06-03 20:23] LABS: Amphetamines Screen Urine Negative (Negative); Barbiturates Screen Urine Negative (Negative); Benzodiazepines Screen Urine Negative (Negative); Cocaine Screen Urine Negative (Negative); Opiate Screen Urine Negative (Negative); PCP Screen Urine Negative (Negative); THC Screen Urine Negative (Negative)
[2024-06-03 20:30] VITALS: BP 110/87; PULSE 91; RESP 14; O2SAT 98
[2024-06-03 20:35] LABS: UA Manual Slide Review YES
[2024-06-03 20:36] LABS: Bacteria Urine 3+ /hpf; WBC Urine 25-40 /hpf (0-5)
[2024-06-03 20:37] LABS: Troponin(5th) Baseline < 6 ng/L (0-15)
[2024-06-03 20:37] LABS: Add Urine Culture? Yes
[2024-06-03 20:45] LABS: Alanine Aminotransferase 10 U/L (0-41); Albumin Level 3.7 g/dL (3.5-5.2); Alkaline Phosphatase 50 U/L (40-130); Anion Gap 14.9 (5-19); Aspartate Amino Transferase 9 U/L (0-40); Blood Urea Nitrogen 10 mg/dL (6-20); Calcium 8.6 mg/dL (8.5-10.5); Carbon Dioxide 25 mmol/L (22-29); Chloride 97 mmol/L (98-107); Creatinine Clr Calc Pharmacy 77.5246; Globulin 1.9 g/dL (1.3-4.6); Glomerular Filtration Rate 74.9 mL/min (90-130); Glucose 98 mg/dL (65-115); Magnesium 1.9 mg/dL (1.7-2.3); Osmolality Calculated 275 mOsm/kg (285-295); Potassium 3.9 mmol/L (3.5-5.1); Sodium 133 mmol/L (136-145); Thyroid Stimulating Hormone 2.29 uIU/mL (0.27-4.20); Total Bilirubin 0.7 mg/dL (0.15-1.2); Total Protein 5.6 g/dL (6.6-8.7)
[2024-06-03 21:00] VITALS: BP 115/83; PULSE 96; RESP 16; O2SAT 99
--- NOTE | 2024-06-03 21:15 | ECG_ITS ---
[facility] Test Date: 2024-06-03 Pat Name: Fredis Mccullough Department: Room: Gender: Male [place] Laboratory Assistant: : 1985 Requested By: Perfecto Villarreal Order Number: [id number] Darya MD: Sury Hill M.D. Measurements Intervals [place] Rate: 88 P: 73 GA: 159 QRS: 68 QRSD: 76 T: 70 QT: 332 QTc: 402 Interpretive Statements SINUS RHYTHM EARLY REPOLARIZATION [ST ELEVATION WITH NORMALLY INFLECTED T-WAVE] Compared to ECG 06/03/2024 19:31:46 Early repolarization now present Electronically Signed On 06-04-2024 17:07:31 CDT by Sury Hill M.D. [id number]
[2024-06-03 21:46] LABS: Troponin 5 2HR Delta 0.00001 ABS# (0-10)
[2024-06-03 21:51] VITALS: BP 124/83; PULSE 94; RESP 16; O2SAT 99
[2024-06-03] MEDS: sulfamethoxazole-trimeth DS 160-800 mg Tablet 1 TAB PO (21:53)
== END 2024-06-03 21:55 | disposition home or self-care (01) ==
PROVIDERS: Emergency Provider Emergency Medicine; PCP Pediatrics
DX: G45.9 Transient cerebral ischemic attack, unspecified (principal); N39.0 Urinary tract infection, site not specified
CPT/HCPCS: 36415; 70450; 70496; 70498; 71045; 80053; 80306; 81003; 81015; 83735; 84443; 84484; 85025; 86140; 87086; 93005; 99285

== ENCOUNTER → 2024-06-08 08:00 | Outpatient (BNVA) | payer MEDICAID, SELFPAY | PROVIDERS: PCP Pediatrics; Visit Provider Psychiatry & Neurology Neurology | DX: G45.9 Transient cerebral ischemic attack, unspecified (principal); R07.9 Chest pain, unspecified; N35.913 Unspecified membranous urethral stricture, male; R56.9 Unspecified convulsions | CPT/HCPCS: 36415; 81241; 82306; 82607; 82746; 83090; 83735; 83921; 85210; 85300; 85303; 85306; 85613; 85730; 86147; 99203; 99204 ==

== ENCOUNTER → 2024-06-10 08:44 | Outpatient (BNVA) | payer MEDICAID, SELFPAY | PROVIDERS: PCP Pediatrics; Visit Provider Psychiatry & Neurology Neurology | DX: G45.9 Transient cerebral ischemic attack, unspecified (principal); R56.9 Unspecified convulsions | CPT/HCPCS: 95819 ==

== ENCOUNTER → 2024-07-19 13:40 | Outpatient (BNVA) | payer MEDICAID, SELFPAY | PROVIDERS: PCP Nurse Practitioner Family; Visit Provider Nurse Practitioner | DX: R39.9 Unspecified symptoms and signs involving the genitourinary system (principal) | CPT/HCPCS: 81000 ==

== ENCOUNTER → 2024-07-22 14:57 | Outpatient (BNVA) | payer MEDICAID, SELFPAY | PROVIDERS: PCP Nurse Practitioner Family; Visit Provider Internal Medicine Cardiovascular Disease | DX: Z86.73 Personal history of transient ischemic attack (TIA), and cerebral infarction without residual deficits (principal); E78.5 Hyperlipidemia, unspecified; R56.9 Unspecified convulsions; Z87.891 Personal history of nicotine dependence | CPT/HCPCS: 99204 ==

== ENCOUNTER 2024-08-18 06:02 | Outpatient (CLI) | payer MEDICAID, SELFPAY ==
--- NOTE | 2024-08-18 06:15 | USCV_ITS ---
Fredis Mccullough Age: 39 Gender: M : 1985 Exam Date: 08/18/2024 06:12 Ordering Phys: Sury Hill MD ([email or web address]) Technologist: Exam Location: [facility] [place] Indication: cva BP: 120 / 70 HR: 53 Rhythm: Sinus Technical Quality: Adequate MEASUREMENTS (Male / Female) Normal Values 2D ECHO LV Diastolic Diameter PLAX 3.5 cm 4.2 - 5.9 / 3.9 - 5.3 cm IVS Diastolic Thickness 1.0 cm 0.6 - 1.0 / 0.6 - 0.9 cm IVS Systolic Thickness 1.3 cm LVPW Diastolic Thickness 1.0 cm 0.6 - 1.0 / 0.6 - 0.9 cm LVPW Systolic Thickness 1.4 cm LVOT Diameter 2.0 cm LV Ejection Fraction 2D Teich 65.6 % LV Ejection Fraction MOD 4C 60.0 % LV Ejection Fraction MOD 2C 74.8 % LV Ejection Fraction 2C AL 75.1 % LA Diameter 3.3 cm RA Systolic Volume 4C AL 20.2 ml RA Systolic Volume 4C MOD 19.1 ml Aorta at Sinotubular Diameter 2.6 cm IVC Diameter 1.8 cm M-MODE LA Ao Ratio MM 1.4 AV Cusp Separation MM 2.4 cm DOPPLER AV Peak Velocity 104.0 cm/s LVOT Peak Velocity 80.0 cm/s AV Area Cont Eq vti 3.0 cm squared AV Area Cont Eq pk 2.4 cm squared MV Peak Velocity 110.0 cm/s MV Area PHT 5.5 cm squared Mitral E to A Ratio 1.9 TV Peak Velocity 202.0 cm/s TR Peak Velocity 218.0 cm/s TR Peak Gradient 19.0 mmHg TV Peak E Velocity 106.0 cm/s Right Atrial Pressure 3.0 mmHg Pulmonary Artery Systolic Pressu 22.0 mmHg PV Peak Velocity 75.0 cm/s FINDINGS Left Ventricle Normal left ventricular size and systolic function, EF 65%. No regional wall motion abnormalities. Right Ventricle The right ventricle is normal in size and function. Right Atrium The right atrium is normal in size. Left Atrium The left atrium is normal in size. Mitral Valve No gross abnormalities noted Aortic Valve No gross abnormalities noted Tricuspid Valve Trace tricuspid valve regurgitation. E PSP, possibly within normal limit Pulmonic Valve No gross abnormalities noted Pericardium Normal pericardium without effusion. Aorta Normal ascending aorta dimension. IVC The inferior vena cava appears normal. CONCLUSIONS Normal left ventricular size and systolic function, EF 65%. No regional wall motion abnormalities. Trace tricuspid valve regurgitation. E PSP, possibly within normal limit. Normal cardiac chamber sizes. No intracardiac shunts by color-flow Doppler examination. No significant valvular lesions No intracardiac masses There is no pericardial effusion. No similar previous studies are available for comparison Dr Sury Hill MD [facility] (Electronically Signed) Final Date: 26 August 2024 08:57 S
== END 2024-08-18 06:03 | disposition home or self-care (01) ==
PROVIDERS: PCP Nurse Practitioner Family; Visit Provider Internal Medicine Cardiovascular Disease
DX: I63.9 Cerebral infarction, unspecified (principal); G45.9 Transient cerebral ischemic attack, unspecified
CPT/HCPCS: 93306

== ENCOUNTER 2024-10-12 07:36 | Outpatient (CLI) | payer MEDICAID, SELFPAY ==
[2024-10-12] MEDS: cephALEXin 500 mg Capsule 2000 MG PO (07:30)
--- NOTE | 2024-10-12 07:53 | P.OP_ITS ---
Operative Report Date of procedure: October 12, 2024 Surgeon: Sury Hill MD Procedure: Date of Procedure: 10/12/2024 Name of the procedure: IMPLANTABLE ACTIVATED SLUDGE OPERATOR INSERTION LOCATION: Cardiac Catheterization Laboratory REFERRING PROVIDER:Dr Moo Ritter/Dr. Armenta PREOPERATIVE DIAGNOSIS: Recurrent CVA/decision disorder POSTOPERATIVE DIAGNOSIS: Same. ESTIMATED BLOOD LOSS: None COMPLICATIONS: None. BRIEF HISTORY: Patient presented with recurrent CVA, cryptogenic. He had an event monitor which didn't reveal any significant arrhythmias to explain the symptoms. For further evaluation, an implantable cardiac cath rn was recommended PROCEDURE: The procedure was explained to the patient in detail with the risks and benefits. The risk of bleeding, hematoma, vascular injury, infection and other concomitant complications were explained in detail. The patient understood this well and consented to proceed. The patient was brought to the Cardiac Metal Punch Press Operator. The patient was given 2 g of Keflex preoperatively. The left side of the chest was cleaned and draped in a sterile fashion. 1% Xylocaine was used as local anesthetic agent. An incision was made in the left fourth intercostal space. Making use of the application device, the implantable cardiac cath rn was inserted, subcutaneously. 5 minutes of manual pressure was applied, at the puncture site. The patient tolerated the procedure very well and there were no complications. No bleeding or hematoma. Steri-Strips were applied over the insertion site followed by a sterile dressing. Patient was sent back to the medical floor in stable condition IMPLANTED DEVICE Reveal LINQ ll Model number: [id number] Serial number: [id number] Make: Seeonic Parameters: Standard settings were applied( (tachycardia rate of 150 beats per minute , bradycardia rate of 40 beats per minute and a pause of 3 seconds ; symptom recording -4 episodes of 7.5 minutes. Atrial fibrillation detection was turned on- recording threshold of ->6 minutes. Sensitivity was kept at 0.035 mV) The R wave sensing was0.25 mV
[2024-10-12 08:03] LABS: Basophils % 0.5 %; Eosinophils # 0.1 10^3/uL (0.0-0.8); Eosinophils % 2.1 %; Hematocrit 42.2 % (37-53); Lymphocytes # 1.7 10^3/uL (0.8-4.8); Lymphocytes % 29.3 %; Mean Corpuscular HGB Conc 33.2 g/dL (30-55); Mean Corpuscular Hemoglobin 29.7 pg (27-33); Mean Corpuscular Volume 89.4 fl (82-101); Mean Platelet Volume 10.1 fL (7.4-10.4); Monocytes # 0.5 10^3/uL (0.2-0.9); Monocytes % 8.9 %; Neutrophils # 3.45 10^3/uL (1.8-7.7); Nucleated Red Blood Cells % 0 %; Platelet Count 202 10^3/cmm (157-399); Red Blood Count 4.72 10^6/uL (3.85-5.65); Red Cell Distribution Width 12.7 % (12.1-15.1); White Blood Count 5.84 10^3/uL (3.29-11.43)
[2024-10-12 08:06] VITALS: BP 118/71; PULSE 58; RESP 16; TEMP 36.9; O2SAT 99
--- NOTE | 2024-10-12 08:17 | PM.HP ---
Providers/Chief Complaint Admitting Physician: CLARITA Hill MD Primary Care Provider: ANGEL Marquez Chief Complaint: I63.9 History of Present Illness Fredis Mccullough is a 39 year old male with a history of dyslipidemia, recurrent TIA and seizure disorder. He had features of cryptogenic stroke. Patient had an event monitor which essentially was unremarkable. For further evaluation for the etiology of the CVA, an implantable petroleum engineering professor was recommended. Patient currently has no fever or chills. No history for any bleeding complications. Medications/Allergies Home Medications Medication Instructions Recorded Confirmed Last Taken Type desmopressin 10 mcg/spray (0.1 mL) See Rx Instructions .Route .COMPLEX 06/29/20 10/11/24 10/11/24 History nasal spray (non-refrigerated) aspirin 325 mg tablet 325 mg PO DAILY 06/08/24 10/11/24 10/11/24 History atorvastatin 80 mg tablet (Lipitor) 80 mg PO DAILY 06/08/24 10/11/24 10/11/24 History phenobarbital 97.2 mg tablet 97.2 mg PO DAILY #30 tabs 10/04/24 10/11/24 10/11/24 Rx methenamine hippurate 1 gram tablet 1 g PO BID 10/12/24 10/12/24 10/12/24 07:00 History Allergies Allergy/AdvReac Type Severity Reaction Status Date / Time No Known Allergies Allergy Verified 08/11/24 13:17 PFSH Acute PFSH: Medical History 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 Seizures Membranous urethral stricture Neurogenic bladder Hx of spina bifida SURGERY History of right foot drop CORRECTIVE SURGERY Prostatitis Surgical History History of brain shunt Hx of circumcision History of pituitary surgery Family History Father Diabetes Mother Diabetes Social History Smoking and tobacco/nicotine status: never used tobacco/nicotine Alcohol intake: current Alcohol intake frequency: holidays/special occasions only Substance/Drug Use: unknown Caregiver/support person: No Lives independently: Yes Marital status: Current occupational status: disabled Vitals/I&O/Wt Last Vital Signs Temp 98.4 F 10/12/24 08:06 Pulse 58 L 10/12/24 08:06 Resp 16 10/12/24 08:06 BP 118/71 10/12/24 08:06 Pulse Ox 99 10/12/24 08:06 O2 Del Method Room Air 10/12/24 08:06 Physical Exam Narrative: GENERAL: The patient is alert and oriented times three. Not in any acute distress. HEENT: No significant pallor, icterus or lymphadenopathy.Oral cavity: There are no mucous membrane lesions. NECK: Trachea appears to be central. No masses noted. No JVD or thyromegaly appreciated. RESPIRATORY: Chest is symmetrical. No intercostals muscle retraction or any accessory muscle activation. There is no chest wall tenderness. Breath sounds are heard bilaterally. No rales or rhonchi heard. No evidence of any consolidation. BREASTS: Deferred. HEART: The heart sounds are normal. No S3 or S4. No significant murmurs. No pericardial rub ABDOMEN: No vessel pulsations or distention. No tenderness. No organomegaly appreciated. Bowel sounds are normally heard. : Deferred. RECTAL: Deferred. LYMPHATIC: No lymphadenopathy noted in the neck. EXTREMITIES: No edema or cyanosis. No clubbing. MUSCULOSKELETAL: No acute joint deformities or swelling SKIN: There are no significant rashes or ecchymosis NEUROPSYCHIATRIC: The patient is alert and oriented x3. Appears to be in a good mood. No tremors or rigidity noted. Data 10/12/24 07:56 A&P Assessment and plan (1) Dyslipidemia: Continue on the current medications (2) TIA (transient ischemic attack): History suggestive of recurrent TIA (3) Cryptogenic stroke: (4) Seizure: No recent seizure episodes Plan For further evaluation, an implantable petroleum engineering professor would be appropriate. Risks and benefits of the procedure were discussed with the patient. The risk of bleeding, hematoma, vascular injury, infection and other concomitant complications were explained in detail. Patient understood this well and consented to proceed. Attestations Medical Necessity Statement*: Possible discharge home within an hour or so after the procedure Coding Level of Care Code 00356 Diagnoses Dyslipidemia E78.5 TIA (transient ischemic attack) G45.9 Cryptogenic stroke I63.9 Seizure R56.9
--- NOTE | 2024-10-12 08:21 | W.PM.OPSUD ---
Surgery/Procedure H&P Update DATE OF PROCEDURE: October 12, 2024 DATE H&P PERFORMED: 10/12/24 H&P UPDATE INFORMATION: I have reviewed H&P completed within last 30 days, I have examined patient prior to procedure and No changes to prior documentation PREOP DIAGNOSIS: Cryptogenic stroke PRIMARY INDICATION FOR PROCEDURE: Recurrent TIA PLANNED PROCEDURE: Operation Date: 10/12/24 08:30 Proposed Procedures p Loop Recorder Insertion [id number], I63.9(Not Applicable) - Sury Hill MD
[2024-10-12] MEDS: lidocaine-epi 1% PF 1:200,000 30 mL SDV INJECTION (08:22)
[2024-10-12 09:05] VITALS: BP 110/67; PULSE 66; RESP 16; O2SAT 97
== END 2024-10-12 09:09 | disposition home or self-care (01) ==
PROVIDERS: PCP Nurse Practitioner Family; Visit Provider Internal Medicine Cardiovascular Disease
PROC: (CPT 33285; principal; 2024-10-12 08:30)
DX: I63.9 Cerebral infarction, unspecified (principal); E78.5 Hyperlipidemia, unspecified; G45.9 Transient cerebral ischemic attack, unspecified; R56.9 Unspecified convulsions; Z79.82 Long term (current) use of aspirin
CPT/HCPCS: 33285; 36415; 85025; C1764; C1769

== ENCOUNTER → 2024-10-20 09:08 | Outpatient (BNVA) | payer MEDICAID, SELFPAY | PROVIDERS: PCP Nurse Practitioner Family; Visit Provider Nurse Practitioner Family | DX: Z86.73 Personal history of transient ischemic attack (TIA), and cerebral infarction without residual deficits (principal); E78.5 Hyperlipidemia, unspecified; R56.9 Unspecified convulsions | CPT/HCPCS: 99024 ==

== ENCOUNTER → 2024-11-19 08:56 | Outpatient (BNVA) | payer MEDICAID, SELFPAY | PROVIDERS: PCP Nurse Practitioner Family; Visit Provider Internal Medicine Cardiovascular Disease | DX: Z45.09 Encounter for adjustment and management of other cardiac device (principal) | CPT/HCPCS: 93291 ==

== ENCOUNTER → 2025-02-15 11:05 | Outpatient (BNVA) | payer MEDICAID, SELFPAY | PROVIDERS: PCP Nurse Practitioner Family; Visit Provider Internal Medicine Cardiovascular Disease | DX: I63.9 Cerebral infarction, unspecified (principal); I63.10 Cerebral infarction due to embolism of unspecified precerebral artery; E78.5 Hyperlipidemia, unspecified; Z79.82 Long term (current) use of aspirin; Z87.891 Personal history of nicotine dependence | CPT/HCPCS: 99213 ==

== ENCOUNTER → 2025-03-09 16:16 | Outpatient (BNVA) | payer MEDICAID, SELFPAY | PROVIDERS: PCP Nurse Practitioner Family; Visit Provider Registered Nurse Neonatal Intensive Care | DX: Z87.440 Personal history of urinary (tract) infections (principal); N39.0 Urinary tract infection, site not specified | CPT/HCPCS: 81000; 87077; 87086; 87184 ==

== ENCOUNTER → 2025-04-16 15:50 | Outpatient (BNVA) | payer MEDICAID, SELFPAY | PROVIDERS: PCP Nurse Practitioner Family; Visit Provider Emergency Medicine | DX: R30.9 Painful micturition, unspecified (principal); R36.9 Urethral discharge, unspecified | CPT/HCPCS: 81000; 87086 ==

== ENCOUNTER → 2025-07-01 07:43 | Outpatient (BNVA) | payer MEDICAID, SELFPAY | PROVIDERS: PCP Nurse Practitioner Family; Visit Provider Family Medicine Adult Medicine | DX: R39.9 Unspecified symptoms and signs involving the genitourinary system (principal) | CPT/HCPCS: 81000 ==

== ENCOUNTER → 2025-07-16 14:08 | Outpatient (BNVA) | payer MEDICAID, SELFPAY | PROVIDERS: PCP Nurse Practitioner Family; Visit Provider Emergency Medicine | DX: R30.0 Dysuria (principal); R39.89 Other symptoms and signs involving the genitourinary system | CPT/HCPCS: 81000; 87086 ==

== ENCOUNTER → 2025-09-17 11:12 | Outpatient (BNVA) | payer MEDICAID, SELFPAY | PROVIDERS: PCP Nurse Practitioner Family; Visit Provider Emergency Medicine | DX: N39.0 Urinary tract infection, site not specified (principal); N41.9 Inflammatory disease of prostate, unspecified | CPT/HCPCS: 81000; 87086 ==